=== PATIENT | female | born 1935 | race Caucasian/White ===

== ENCOUNTER 2018-12-27 06:38 | Inpatient (IN) ==
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
[2018-12-27] MEDS ORDERED: ACETAMINOPHEN 1,000 MG/100 ML BTL IV ONE (07:50)
[2018-12-27] MEDS ORDERED: NORMAL SALINE 1,000 ML IV ONE (07:51)
[2018-12-27 08:07] LABS: Hematocrit 41.4 % (37.0-47.0); Hemoglobin 13.8 gm/dL (12.5-16.0); Mean Cell Volume 97.6 fl (78-100); Mean Corpuscular Hemoglobin 32.5 pg (27-31); Mean Corpuscular Hgb Conc 33.3 g/dl (32-36); Mean Platelet Volume 10.2 fl (8-12.5); Neutrophil # 5.2 K/mm3 (1.3-6.0); Neutrophil % 81.5 % (42-75.0); Platelet Count 143 K/mm3 (150-450); Red Blood Count 4.24 M/mm3 (4.2-5.4); Red Cell Distribution Width 13.7 % (11.5-14.0); White Blood Count 6.4 K/mm3 (4.0-10.5)
[2018-12-27] MEDS ORDERED: ONDANSETRON HCL/PF 2 MG/ML VIAL IV PRN ×2 (08:11→12:39)
[2018-12-27] MEDS ORDERED: ACETAMINOPHEN 1,000 MG/100 ML BTL IV PRN (08:12)
[2018-12-27 08:19] LABS: Albumin * 3.4 gm/dl (3.4-5.0); BUN/Creatinine Ratio 17.4 (9.0-21.6); Bilirubin, Total 0.7 mg/dL (0.0-1.1); Carbon Dioxide 28.9 mmol/L (24-32.6); Potassium 3.9 mmol/L (3.4-4.6); Total Protein 6.7 gm/dL (6.2-8.2)
[2018-12-27 08:29] LABS: Ca. Corrected For Albumin 8.8 mg/dL (8.4-10.2); Calcium * 8.6 mg/dL (7.9-10.9)
[2018-12-27 08:37] LABS: Urine Bilirubin Negative (NEGATIVE); Urine Blood Negative /ul (NEGATIVE); Urine Ketone Negative (NEGATIVE); Urine Nitrite Negative (NEGATIVE); Urine Protein Negative (NEGATIVE); Urine Specific Gravity 1.015 SP.GR. (1.005-1.010); Urine Urobilinogen Normal (NORMAL); Urine pH 6.5 pH (5.0-7.0)
[2018-12-27 08:51] LABS: Urine Appearance Slightly Cloudy (CLEAR); Urine Bacteria TRACE; Urine Color Yellow; Urine RBC 0-5 /hpf (0-5); Urine WBC 0-5 /hpf (0-5)
[2018-12-27] MEDS ORDERED: MORPHINE SULFATE 2 MG/ML DISP.SYRIN IV PRN (09:50)
--- NOTE | 2018-12-27 10:02 | ANES ---
Anesthesia Pre Procedure Eval Vitals/Labs: Last Vital Signs Temp 37.3 C 12/27/18 09:00 Pulse 75 12/27/18 09:00 Resp 24 H 12/27/18 09:00 BP 146/78 12/27/18 09:00 Pulse Ox 94 12/27/18 09:00 HOME MEDICATIONS acetaminophen 325 mg capsule 650 mg PO Q6H PRN cap 05/01/18 [Last Taken Unknown] bisacodyl 10 mg rectal suppository 10 mg IN DAILY PRN 05/01/18 [Last Taken Unknown] latanoprost 0.005 % eye drops 1 drp OP HS #3 ml 05/01/18 [Last Taken Unknown] lisinopril 5 mg tablet 5 mg PO HS #28 tab 05/01/18 [Last Taken Unknown] multivitamin tablet 1 tab PO DAILY 05/01/18 [Last Taken Unknown] olanzapine 10 mg tablet 10 mg PO HS #28 tab 05/01/18 [Last Taken Unknown] olanzapine 2.5 mg tablet 2.5 mg PO DAILY #28 tab 05/01/18 [Last Taken Unknown] polyethylene glycol 3350 17 gram/dose oral powder 17 g PO DAILY PRN g 05/01/18 [Last Taken Unknown] potassium chloride ER 10 mEq tablet,extended release 10 meq PO BID #28 tab 05/01/18 [Last Taken Unknown] sennosides 8.6 mg-docusate sodium 50 mg tablet 1 tab PO HS PRN 05/01/18 [Last Taken Unknown] sertraline 50 mg tablet 50 mg PO DAILY #28 tab 05/01/18 [Last Taken Unknown] simvastatin 20 mg tablet 20 mg PO HS #28 tab 05/01/18 [Last Taken Unknown] trazodone 50 mg tablet 25 mg PO DAILY PRN #16 tab 05/01/18 [Last Taken Unknown] cholecalciferol (vitamin D3) 2,000 unit tablet 2,000 unit PO DAILY 06/19/18 [Last Taken Unknown] olanzapine 5 mg tablet 5 mg PO 1400 #28 tab 08/11/18 [Last Taken Unknown] Dextromethorphan Polistirex [Delsym] 15 mg PO BID PRN 12/27/18 [Last Taken Unknown] Allergies/Adverse Reactions: Allergies Allergy/AdvReac Type Severity Reaction Status Date / Time No Known Allergies Allergy Verified 12/27/18 09:45 - Planned Procedure Planned Procedure: LT hip fracture Medication List Reviewed:: Yes Allergies Verified: Yes Medical History (Updated 12/27/18 @ 07:59 by Nancy Lyons MD) Unspecified open-angle glaucoma, stage unspecified (Acute) Major depressive disorder (Acute) Osteoarthritis (Acute) Hyperlipidemia (Chronic) Essential hypertension (Chronic) Glaucoma (Chronic) Dementia (Chronic) Anxiety (Chronic) CAD (coronary artery disease) (Chronic) AAA (abdominal aortic aneurysm) (Chronic) Surgical History (Updated 12/27/18 @ 06:50 by Sabra Flores RN) History of cholecystectomy (Resolved) History of colonoscopy (Resolved) History of hysterectomy (Resolved) History of permanent cardiac pacemaker placement (Resolved) History of AAA (abdominal aortic aneurysm) repair (Resolved) Family History (Updated 12/27/18 @ 06:54 by Micah Cordoba RN) Other Family history unobtainable - Family Anesthesia History Family History:: no untoward family reactions to anesthesia, no familial bleeding tendencies, no family history of clotting disorders, no family history of premature - Airway/Neck/Teeth Within Normal Limits:: Yes Denture Type: Full upper, Full lower - out at this time Neck Exam: full range of motion Mallampatti Score: 2 - estimate, pt not cooperative. Thyromental (T-M) distance: > 6 cm Mandibulo Hyoid distance: > 3 cm - Respiratory Respiratory Physical: decreased breath sounds Smoking Status: Former smoker - quit over 20 years ago Sleep Apnea currently treated: No Sleep Apnea by current assessment: No - Cardiovascular Cardiac History: arrhythmia - Paced., CAD Tolerate Activity: Fair - normally walks without walker or other device. Heart Sounds: S1 & S2, Regular - pacemaker - Anesthesia Assessment and Plan ASA Class: PS, III, E Anesthesia Type Plan: Spinal
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
--- NOTE | 2018-12-27 10:57 | HP ---
Chief Complaint - Chief Complaint Date of Service: 12/27/18 Time of Service: 10:39 Chief Complaint: hip pain History of Present Illness: 83-year-old female with history of hypertension, hyperlipidemia, CAD with permanent pacemaker was brought into the hospital following a ground-level fall. X-rays of her pelvis showed her to have an intertrochanteric left femur fracture. Dr. Higgins was consulted and plans to take back for repair later today. Patient is currently n.p.o. Patient is pleasantly demented, A&O x1 but denies being in any pain. Patient's lab work in the ER within normal limits, patient not anemic. Patient's vital signs are stable though she is mildly tachypneic at 24. Risks of surgery discussed with the patient's family who wish to proceed with repair due to patient's activity level and quality of life. Medical History (Updated 12/27/18 @ 07:59 by Nancy Lyons MD) Unspecified open-angle glaucoma, stage unspecified (Acute) Major depressive disorder (Acute) Osteoarthritis (Acute) Hyperlipidemia (Chronic) Essential hypertension (Chronic) Glaucoma (Chronic) Dementia (Chronic) Anxiety (Chronic) CAD (coronary artery disease) (Chronic) AAA (abdominal aortic aneurysm) (Chronic) Surgical History: Surgical History (Updated 12/27/18 @ 06:50 by Sabra Flores RN) History of cholecystectomy (Resolved) History of colonoscopy (Resolved) History of hysterectomy (Resolved) History of permanent cardiac pacemaker placement (Resolved) History of AAA (abdominal aortic aneurysm) repair (Resolved) Family History: Family History (Updated 12/27/18 @ 06:54 by Micah Cordoba RN) Other Family history unobtainable Social History: (Last Reviewed 12/27/18 @ 09:45 by Medina Bright RN) Social History: senior living: Yes lives independently: No caregiver/support person: Yes caregiver/support person comment: senior living, spouse caregivers: other parent marital status: current occupational status: retired Tobacco: Smoking Status: Former smoker, quit over 20 years ago Review Of Systems (GEN) - Review of Systems Generalized/Overall Review: Present: No Symptoms Reported - Patient denies pain but otherwise review of systems unable to be obtained due to dementia Immunizations: IMMUNIZATION HX Immunizations Up to Date Yes History of Influenza Vaccine More Information Required Hx Pneumococcal Vaccination Yes Allergies/Adverse Reactions: Allergies Allergy/AdvReac Type Severity Reaction Status Date / Time No Known Allergies Allergy Verified 12/27/18 09:45 Home Medications: HOME MEDICATIONS acetaminophen 325 mg capsule 650 mg PO Q6H PRN cap 05/01/18 [Last Taken Unknown] bisacodyl 10 mg rectal suppository 10 mg [place] DAILY PRN 05/01/18 [Last Taken Unknown] latanoprost 0.005 % eye drops 1 drp OP HS #3 ml 05/01/18 [Last Taken Unknown] lisinopril 5 mg tablet 5 mg PO HS #28 tab 05/01/18 [Last Taken Unknown] multivitamin tablet 1 tab PO DAILY 05/01/18 [Last Taken Unknown] olanzapine 10 mg tablet 10 mg PO HS #28 tab 05/01/18 [Last Taken Unknown] olanzapine 2.5 mg tablet 2.5 mg PO DAILY #28 tab 05/01/18 [Last Taken Unknown] polyethylene glycol 3350 17 gram/dose oral powder 17 g PO DAILY PRN g 05/01/18 [Last Taken Unknown] potassium chloride ER 10 mEq tablet,extended release 10 meq PO BID #28 tab 05/01/18 [Last Taken Unknown] sennosides 8.6 mg-docusate sodium 50 mg tablet 1 tab PO HS PRN 05/01/18 [Last Taken Unknown] sertraline 50 mg tablet 50 mg PO DAILY #28 tab 05/01/18 [Last Taken Unknown] simvastatin 20 mg tablet 20 mg PO HS #28 tab 05/01/18 [Last Taken Unknown] trazodone 50 mg tablet 25 mg PO DAILY PRN #16 tab 05/01/18 [Last Taken Unknown] cholecalciferol (vitamin D3) 2,000 unit tablet 2,000 unit PO DAILY 06/19/18 [Last Taken Unknown] olanzapine 5 mg tablet 5 mg PO 1400 #28 tab 08/11/18 [Last Taken Unknown] Dextromethorphan Polistirex [Delsym] 15 mg PO BID PRN 12/27/18 [Last Taken Unknown] Exam - Exam Vital Signs: Vital Signs - Last Taken Temp 37.3 C 12/27/18 09:00 Pulse 75 12/27/18 09:00 Resp 24 H 12/27/18 09:00 BP 146/78 12/27/18 09:00 Pulse Ox 94 12/27/18 09:00 Constitutional: Present: Alert, No distress, Elderly, Thin and frail. Absent: Oriented x3 - X1 ENT Exam: Absent: nasal congestion, nasal drainage Neck: Present: non-tender, supple Back Exam: Present: normal inspection, no CVA tenderness, no vertebral tenderness Respiratory: Present: lungs clear, normal breath sounds. Absent: respiratory distress Cardiovascular/Chest: Present: normal peripheral pulses, regular rate, rhythm Peripheral Pulses: dorsalis-pedis (R): 2+, dorsalis-pedis (L): 2+ Abdomen: Present: Normal bowel sounds, soft, nontender Skin Exam: Present: normal color, warm/dry Appearance: Present: impaired insight, impaired recent memory. Absent: appropriate insight Eye contact: Present: good eye contact, refused to answer Diagnostic Studies: Abnormal Lab Results 12/27/18 12/27/18 Range/Units 07:58 07:58 MCH 32.5 H (27-31) pg Plt Count 143 L (150-450) K/mm3 Immature Gran % (Auto) 0.50 H (0.001-0.429) % Neutrophils % 81.5 H (42-75.0) % Lymphocytes % 9.8 L (20-51) % Lymphocytes # 0.62 L (1.5-3.5) k/mm3 Est GFR (Non-Af Amer) 45 L (60-130) mL/min Laboratory Results WBC 6.4 K/mm3 (4.0-10.5) 12/27/18 07:58 RBC 4.24 M/mm3 (4.2-5.4) 12/27/18 07:58 Hgb 13.8 gm/dL (12.5-16.0) 12/27/18 07:58 Hct 41.4 % (37.0-47.0) 12/27/18 07:58 MCV 97.6 fl (78-100) 12/27/18 07:58 MCH 32.5 pg (27-31) H 12/27/18 07:58 MCHC 33.3 g/dl (32-36) 12/27/18 07:58 RDW 13.7 % (11.5-14.0) 12/27/18 07:58 Plt Count 143 K/mm3 (150-450) L 12/27/18 07:58 MPV 10.2 fl (8-12.5) 12/27/18 07:58 Immature Gran % (Auto) 0.50 % (0.001-0.429) H 12/27/18 07:58 Immature Gran # (Auto) 0.03 K/mm3 (0.000-0.0310) 12/27/18 07:58 81.5 % (42-75.0) H 12/27/18 07:58 9.8 % (20-51) L 12/27/18 07:58 6.6 % (0.0-9) 12/27/18 07:58 1.1 % (0.0-3.0) 12/27/18 07:58 0.5 % (0.0-1.0) 12/27/18 07:58 Nucleated RBC % 0.0 k/mm3 (0-1) 12/27/18 07:58 5.2 K/mm3 (1.3-6.0) 12/27/18 07:58 0.62 k/mm3 (1.5-3.5) L 12/27/18 07:58 0.4 k/mm3 (0.0-1.0) 12/27/18 07:58 0.1 k/mm3 (0.0-0.7) 12/27/18 07:58 Absolute Basophils 0.0 k/mm3 (0.0-0.1) 12/27/18 07:58 Sodium 141 mmol/L (132-142) 12/27/18 07:58 141 mmol/L (130-142) 12/27/18 07:58 Potassium 3.9 mmol/L (3.4-4.6) 12/27/18 07:58 Chloride 105 mmol/L (97-106) 12/27/18 07:58 Carbon Dioxide 28.9 mmol/L (24-32.6) 12/27/18 07:58 11.0 mmol/L (6.8-13.8) 12/27/18 07:58 BUN 21 mg/dL (3-23) 12/27/18 07:58 1.21 mg/dL (0.4-1.4) 12/27/18 07:58 Est GFR (Non-Af Amer) 45 mL/min (60-130) L 12/27/18 07:58 17.4 (9.0-21.6) 12/27/18 07:58 103 mg/dL (70-110) 12/27/18 07:58 Calcium 8.6 mg/dL (7.9-10.9) 12/27/18 07:58 Calcium Adj for Albumin 8.8 mg/dL (8.4-10.2) 12/27/18 07:58 0.7 mg/dL (0.0-1.1) 12/27/18 07:58 AST 35 U/L (0-48) 12/27/18 07:58 ALT 39 U/L (19-67) 12/27/18 07:58 79 U/L (50-170) 12/27/18 07:58 6.7 gm/dL (6.2-8.2) 12/27/18 07:58 3.4 gm/dl (3.4-5.0) 12/27/18 07:58 Yellow 12/27/18 08:17 Slightly cloudy (CLEAR) 12/27/18 08:17 6.5 pH (5.0-7.0) 12/27/18 08:17 Ur Specific [place] 1.015 SP.GR. (1.005-1.010) 12/27/18 08:17 Negative mg/dL (NEGATIVE) 12/27/18 08:17 Negative mg/dL (NEGATIVE) 12/27/18 08:17 Negative mg/dL (NEGATIVE) 12/27/18 08:17 Negative /ul (NEGATIVE) 12/27/18 08:17 Negative (NEGATIVE) 12/27/18 08:17 Negative mg/dl (NEGATIVE) 12/27/18 08:17 Normal EU/dl (NORMAL) 12/27/18 08:17 Ur Leukocyte Esterase Negative /ul (NEGATIVE) 12/27/18 08:17 0-5 /hpf (0-5) 12/27/18 08:17 0-5 /hpf (0-5) 12/27/18 08:17 Ur Epithelial Cells 0-5 /hpf (0-5) 12/27/18 08:17 Trace (NONE) 12/27/18 08:17 Culture to follow 12/27/18 08:17 Assessment/Plan - Narrative Narrative: Patient to go back for repair with Dr. Higgins this morning. Patient's risk factors slightly higher than above average due to age, dementia, fall risk, senior living placement, CAD with permanent pacemaker in place. This was all discussed with the family who wish to proceed with the surgery due to patient's quality of life. I think this is an appropriate decision and agree with surgical clearance. Patient's vital signs are stable, she is not anemic. Normal kidney function. Patient currently n.p.o. prior to surgery. Morphine for pain control. SCDs to be worn on right leg for DVT prophylaxis, none on left for comfort measures. Currently holding home meds will restart them following surgery. Nurse will call with questions or concerns. - Assessment/Plan (1) Intertrochanteric fracture of left femur Problem: Acute (2) Dementia Problem: Chronic Qualifiers: (3) History of permanent cardiac pacemaker placement Problem: Resolved (4) CAD (coronary artery disease) Problem: Chronic Qualifiers: (5) Hyperlipidemia Problem: Chronic (6) Osteoarthritis Problem: Acute
[2018-12-27] MEDS: RINGER'S SOLUTION,LACTATED 1,000 ML IV PRN ×3 (12:12→22:37)
[2018-12-27] MEDS ORDERED: ACETAMINOPHEN 500 MG TABLET PO PRN (12:39)
[2018-12-27] MEDS ORDERED: ZOLPIDEM TARTRATE 5 MG TABLET PO PRN (12:39)
[2018-12-27] MEDS ORDERED: HYDROcodone/ACETAMINOPHEN 1 EACH TABLET PO PRN (12:39)
[2018-12-27] MEDS ORDERED: MAG HYDROX/ALUMINUM HYD/SIMETH 30 ML UDC PO PRN (12:39)
[2018-12-27] MEDS ORDERED: MAGNESIUM HYDROXIDE 30 ML UDC PO PRN (12:39)
[2018-12-27] MEDS ORDERED: diphenhydrAMINE HCL 50 MG/ML VIAL IV PRN (12:39)
[2018-12-27] MEDS ORDERED: MORPHINE SULFATE 4 MG/ML SYRG IV PRN (12:39)
--- NOTE | 2018-12-27 12:45 | OR ---
Operative Report - Dictated Report Narrative: Date: 12/27/2018 Surgeon: Harshal Higgins M.D. Welder/Fitter: None Preoperative diagnosis: Left intertrochanteric femur fracture Postoperative diagnosis: Left intertrochanteric femur fracture Operations and procedures: 1. Closed reduction, cephalo-medullary fixation left intertrochanteric femur fracture 2. Intraoperative interpretation of radiographs Anesthesia: Spinal Specimens: None Estimated blood loss: 200 milliliters Retained implants: [employer] Trigen InterTAN 130 degree size 10 mm by 18 centimeter nail with 85 millimeter lag screw and 80 millimeter compression screw, with distal locking screw Complications: None Indications for procedure: Connie is an 83-year-old female with dementia who injured the left leg after falling from standing height in her correction. They were admitted to the hospital after being evaluated in the emergency department. Once the medical provider felt that they were stable for surgical treatment, the risks and benefits alternatives were discussed. The risks of , blood clots, bleeding, infection, nerve/tendon/blood vessel injury, malunion, nonunion, failure of implants, painful implants, arthrosis, and need for additional procedures were discussed. The extremity was marked and consent was obtained on the floor. Procedure: After marking the operative extremity on the floor, the patient was taken to the operating room. A timeout was performed. IV antibiotics consisting of 1 g of Ancef were administered. A spinal anesthetic was induced by anesthesia, and the patient was then placed onto a fracture table with a well-padded perineal post. The non-operative leg was placed in a well-padded well leg boone in lithotomy position with an SCD on the leg. The operative leg was placed in a well-padded traction boot. Longitudinal traction, internal rotation, flexion, and adduction were utilized in order to reduce the fracture. Preliminary images were attained utilizing C-arm in both the AP and lateral views. This confirmed that we had obtained adequate visualization of the fracture as well as reduction. Next the hip was then prepped and draped in a standard sterile fashion. Next, the guidewire was placed percutaneously proximal to the greater trochanter to bernadette a starting point at the tip of the greater trochanter centered on the lateral view. This was advanced down to the level below the lesser trochanter. A scalpel was utilized to dissect down to the greater trochanter in order to lace the soft tissue protector down to bone. The entry reamer was then advanced down the proximal femur to the level of the lesser trochanter. A series of reamers up to 11.5 mm were passed down the femoral canal over a long guide xiao to ensure that our nail would advance into place. The above nail was then selected and impacted into place. The outrigger was utilized in order to confirm the appropriate depth of the nail. Using the alignment device on the outrigger, a popeye incision was made over the lateral femur. Sharp dissection was carried through the iliotibial band down to the proximal femur. The guidewire was was placed into the femoral head in a center center position on AP and lateral views. A tip apex distance less than 25 mm combined was obtained. Once we felt that we had placed the guidewire in the appropriate position, it was measured. Next the compression screw entry drill was advanced through the lateral cortex. This was then drilled down to the appropriate depth for the compression screw, again confirming that we are within the confines the bone. The derotational bar was then placed and the lag screw was drilled to the appropriate depth. The lag screw was then secured in place ensuring that we were within the confines of the bone. The compression screw was then inserted allowing for compression while releasing the traction on the leg. Using C-arm this was visualized to allow for compression across the fracture site. Once it was felt we had adequately stabilized the intertrochanteric fracture, the distal interlocking screw was placed in a static position confirmed to be the appropriate length and within the nail on both AP and lateral views. The nail was secured allowing for controlled compression and the outrigger was removed. The wounds were then thoroughly irrigated. Final images were obtained. The hip was placed through range of motion and showed no crepitance. The deep fascia was closed with 0 Vicryl, the subcutaneous tissue with 3-0 Vicryl, and the skin was closed with cash. Sterile dressings of Xeroform, 4 x 4s, and tegaderm were applied. All sponge, sharp, and instrument counts were correct prior to closing the wounds. The patient was then awoken and transferred to the postanesthesia care unit in stable condition.
--- NOTE | 2018-12-27 12:52 | ANES ---
Post Anesthesia Assessment - Vital Signs Vitals: Last Vital Signs Temp 37.3 C 12/27/18 09:00 Pulse 75 12/27/18 09:00 Resp 24 H 12/27/18 09:00 BP 146/78 12/27/18 09:00 Pulse Ox 94 12/27/18 09:00 Airway Patency: Normal - Mental Status Level Of Consciousness: Drowsy - Pain Level Pain Score: 0 - N/V Assessment Nausea/Vomiting Presence: None Dehydration:: No
--- NOTE | 2018-12-27 13:04 | ANES ---
Post Anesthesia Discharge - Transfer of Care Transfer of Care handoff given to nurse: Yes - Discharge from PACU Discharge from PACU when meets criteria: Yes - Comfortable, arousable.
[2018-12-27] MEDS ORDERED: LORazepam 2 MG/ML DISP.SYRIN IV ONE (17:00)
[2018-12-27] MEDS: ceFAZolin SODIUM 1 GM in DEXTROSE 5 % IN WATER 100 ML IV SCH ×2 (17:17)
[2018-12-27] MEDS: HYDROcodone/ACETAMINOPHEN 1 EACH TABLET PO PRN (20:52)
[2018-12-27] MEDS: SENNOSIDES/DOCUSATE SODIUM 1 TAB TABLET PO SCH (20:53)
[2018-12-27] MEDS: LORazepam 2 MG/ML DISP.SYRIN IV PRN (21:02)
[2018-12-28] MEDS: ceFAZolin SODIUM 1 GM in DEXTROSE 5 % IN WATER 100 ML IV SCH ×4 (02:01→09:59)
[2018-12-28] MEDS: HYDROcodone/ACETAMINOPHEN 1 EACH TABLET PO PRN ×2 (04:41→21:45)
[2018-12-28] MEDS: RINGER'S SOLUTION,LACTATED 1,000 ML IV PRN (04:51)
[2018-12-28] MEDS: LORazepam 2 MG/ML DISP.SYRIN IV PRN (05:09)
[2018-12-28 05:54] LABS: Hematocrit 32.9 % (37.0-47.0); Hemoglobin 11.1 gm/dL (12.5-16.0); Mean Cell Volume 97.1 fl (78-100); Mean Corpuscular Hemoglobin 32.7 pg (27-31); Mean Corpuscular Hgb Conc 33.7 g/dl (32-36); Mean Platelet Volume 10.5 fl (8-12.5); Platelet Count 130 K/mm3 (150-450); Red Blood Count 3.39 M/mm3 (4.2-5.4); Red Cell Distribution Width 13.4 % (11.5-14.0); White Blood Count 9.9 K/mm3 (4.0-10.5)
[2018-12-28] MEDS ORDERED: ceFAZolin SODIUM 1 GM VIAL IV PRN (06:00)
[2018-12-28 06:07] LABS: Anion Gap 11.1 mmol/L (6.8-13.8); BUN/Creatinine Ratio 14.6 (9.0-21.6); Calcium * 7.9 mg/dL (7.9-10.9); Carbon Dioxide 28.6 mmol/L (24-32.6); Estimated Creat Clear 26.9; Potassium 3.7 mmol/L (3.4-4.6)
--- NOTE | 2018-12-28 10:41 | PN ---
Subjective - Date and Time Seen Date: 12/28/18 Time: 07:50 Subjective Narrative: Patient has not significantly responsive, she does respond to stimuli and her name, however she is unable to follow significant commands. Per nursing she was given a dose of Ativan due to significant agitation and patient attempting to leave her bed. Note nursing also states that she has attempted multiple times to significantly remove her dressings at the surgical site. We will continue to monitor. Discussed with nursing updating medicine on patient's current condition. Objective - Vitals Vitals: Last Vital Signs Temp 37.6 C 12/28/18 06:00 Pulse 75 12/28/18 06:00 Resp 20 12/28/18 06:00 BP 108/53 12/28/18 06:00 Pulse Ox 91 L 12/28/18 06:00 - Abnormal Lab Findings Abnormal Lab Findings: Abnormal Lab Results 12/28/18 12/28/18 Range/Units 05:40 05:40 RBC 3.39 L (4.2-5.4) M/mm3 Hgb 11.1 L (12.5-16.0) gm/dL Hct 32.9 L (37.0-47.0) % MCH 32.7 H (27-31) pg Plt Count 130 L (150-450) K/mm3 Est GFR (Non-Af Amer) 44 L (60-130) mL/min Random Glucose 126 H (70-110) mg/dL - Exam Extremity: Present: other - LLE--> dressings mildly reinforced, no significant drainage or erythema around the dressing, distal capillary refill brisk Cauti Physician Documentation - Urinary Catheter Management Urethral ([place]) Date of Insertion: 12/27/18 Time of Insertion: 08:10 Date of Removal: 12/28/18 Time of Removal: 05:30 Assessment/Plan Plan Narrative: -83 y/o female postop day 1 status post left cephalo-medullary nailing of intertrochanteric femur fracture -Weightbearing as tolerated, assistive device PRN -PT/OT progress as tolerated -P.o. diet as tolerated -P.o. pain medication PRN -Chronic medical conditions per medicine -DVT prophylaxis: Lovenox, SCDs in bed, BRANDIE hose knee-high -Continue to monitor patient's mental status, medicine was to be notified by alex lea due to agitation and mild arousal -Disposition due to patient's chronical medical conditions will most likely require higher level of care, will continue to monitor PT/OT goals, and return to p.o. diet and pain control - Problems/Diagnosis (1) Intertrochanteric fracture of left femur Problem: Acute
[2018-12-28] MEDS: ENOXAPARIN SODIUM 40 MG/0.4 ML SYRG SC SCH (12:14)
--- NOTE | 2018-12-28 12:27 | PN ---
Subjective - Date and Time Seen Date: 12/28/18 Time: 12:27 Subjective Narrative: Patient much more comfortable and alert today. No acute events over night though she is still requiring ativan for agitation. She is upright and sitting in her chair this morning. Her vitals are stable. She is still nonverbal with me, family in the room during her examination. Objective Objective Narrative: She denies pain, refuses to answer any other questions - Vitals Vitals: Last Vital Signs Temp 37.1 C 12/28/18 10:00 Pulse 83 12/28/18 10:00 Resp 18 12/28/18 10:00 BP 117/60 12/28/18 10:00 Pulse Ox 90 L 12/28/18 10:00 - Abnormal Lab Findings Abnormal Lab Findings: Abnormal Lab Results 12/28/18 12/28/18 Range/Units 05:40 05:40 RBC 3.39 L (4.2-5.4) M/mm3 Hgb 11.1 L (12.5-16.0) gm/dL Hct 32.9 L (37.0-47.0) % MCH 32.7 H (27-31) pg Plt Count 130 L (150-450) K/mm3 Est GFR (Non-Af Amer) 44 L (60-130) mL/min Random Glucose 126 H (70-110) mg/dL - Exam Constitutional: Present: Alert, Elderly, Thin and frail. Absent: Oriented x3 - x1 ENT Exam: Present: hard of hearing. Absent: nasal congestion, nasal drainage Neck: Present: non-tender, trachea midline Respiratory: Present: lungs clear, normal breath sounds, no respiratory distress Cardiovascular/Chest: Present: normal peripheral pulses, regular rate, rhythm Abdomen: Present: Normal bowel sounds, soft, nontender /Rectal: Present: Exam deferred Extremity: Absent: lower extremity edema, pedal edema Skin Exam: Present: normal color, warm/dry Appearance: Present: impaired insight, impaired recent memory, impaired remote memory Eye contact: Present: avoids eye contact, refused to answer Cauti Physician Documentation - Urinary Catheter Management Urethral ([place]) Date of Insertion: 12/27/18 Time of Insertion: 08:10 Date of Removal: 12/28/18 Time of Removal: 05:30 Assessment/Plan Plan Narrative: Post op day 1 for repair of left intertrochanteric fracture repair by Dr. Higgins. Pain appears to be well controlled though patient is nonverbal most of the time and has advanced dementia making examination difficult. Mild blood loss anemia, will monitor H/H. Continue oral pain meds as needed. Patient has been significantly somnolent since requiring Ativan due to agitation. She is going to be difficult to get through PT with her dementia and agitation. Will get her home meds restarted to see if this will make much of a difference in this area Will monitor vitals, restart home meds. Lovenox for DTV ppx. Reg diet. Nurse to call with any questions or concerns. - Problems/Diagnosis (1) Intertrochanteric fracture of left femur Problem: Acute (2) Dementia Problem: Chronic Qualifiers: (3) History of permanent cardiac pacemaker placement Problem: Resolved (4) CAD (coronary artery disease) Problem: Chronic Qualifiers: (5) Hyperlipidemia Problem: Chronic (6) Osteoarthritis Problem: Acute
[2018-12-28] MEDS: SENNOSIDES/DOCUSATE SODIUM 1 TAB TABLET PO SCH (21:40)
[2018-12-28] MEDS ORDERED: POLYETHYLENE GLYCOL 3350 119 GM BTL PO PRN (22:05)
[2018-12-28] MEDS ORDERED: traZODone HCL 50 MG TABLET PO PRN (22:05)
[2018-12-28] MEDS ORDERED: ACETAMINOPHEN 325 MG TABLET PO PRN (22:28)
[2018-12-29 06:07] LABS: Hematocrit 31.4 % (37.0-47.0); Hemoglobin 10.8 gm/dL (12.5-16.0); Mean Cell Volume 97.2 fl (78-100); Mean Corpuscular Hemoglobin 33.4 pg (27-31); Mean Corpuscular Hgb Conc 34.4 g/dl (32-36); Mean Platelet Volume 10.9 fl (8-12.5); Platelet Count 138 K/mm3 (150-450); Red Blood Count 3.23 M/mm3 (4.2-5.4); Red Cell Distribution Width 13.2 % (11.5-14.0); White Blood Count 12.1 K/mm3 (4.0-10.5)
[2018-12-29 06:09] LABS: Anion Gap 10.2 mmol/L (6.8-13.8); Calcium * 8.1 mg/dL (7.9-10.9); Potassium 3.2 mmol/L (3.4-4.6)
[2018-12-29] MEDS ORDERED: POLYETHYLENE GLYCOL 3350 17 GM PACKET PO PRN (06:40)
[2018-12-29] MEDS: POTASSIUM CHLORIDE 10 MEQ TABLET.SA PO SCH ×2 (08:39→17:06)
[2018-12-29] MEDS: SERTRALINE HCL 50 MG TABLET PO SCH (08:39)
[2018-12-29] MEDS: OLANZapine 5 MG TABLET PO SCH (08:39)
[2018-12-29] MEDS: DENTAL ADHESIVE 39 APPL TUBE TP SCH (10:25)
[2018-12-29] MEDS ORDERED: POTASSIUM CHLORIDE 40 MEQ/15 ML LIQUID PO ONE (10:30)
[2018-12-29] MEDS: HYDROcodone/ACETAMINOPHEN 1 EACH TABLET PO PRN ×2 (10:38→20:07)
[2018-12-29] MEDS: ENOXAPARIN SODIUM 40 MG/0.4 ML SYRG SC SCH (10:39)
--- NOTE | 2018-12-29 15:13 | PN ---
Subjective - Date and Time Seen Date: 12/29/18 Time: 07:40 Subjective Narrative: Patient reports no acute events, however she has significant dementia and is unable to answer questions appropriately. She appears to be resting comfortably. Nursing reports that patient has tried to remove her dressings multiple times. She has been up to chair. She has worked with physical therapy who believes she could make improvements activities of daily living. Objective - Vitals Vitals: Last Vital Signs Temp 36.4 C 12/29/18 14:00 Pulse 78 12/29/18 14:00 Resp 20 12/29/18 14:00 BP 116/53 12/29/18 14:00 Pulse Ox 93 12/29/18 14:00 - Abnormal Lab Findings Abnormal Lab Findings: Abnormal Lab Results 12/29/18 12/29/18 Range/Units 05:26 05:26 WBC 12.1 H D (4.0-10.5) K/mm3 RBC 3.23 L (4.2-5.4) M/mm3 Hgb 10.8 L (12.5-16.0) gm/dL Hct 31.4 L (37.0-47.0) % MCH 33.4 H (27-31) pg Plt Count 138 L (150-450) K/mm3 Potassium 3.2 L (3.4-4.6) mmol/L Est GFR (Non-Af Amer) 52 L (60-130) mL/min - Exam Constitutional: Present: No distress Extremity: Present: other - LLE--> bandages clean/dry/intact, patient is able to perform active range of motion is within functional limit of ankle plantarflexion/dorsiflexion, distal capillary refill brisk, mild distress with palpation of left hip region Cauti Physician Documentation - Urinary Catheter Management Urethral ([place]) Date of Insertion: 12/27/18 Time of Insertion: 08:10 Date of Removal: 12/28/18 Time of Removal: 05:30 Assessment/Plan Plan Narrative: -83 y/o female postop day 2 status post left cephalo-medullary nailing of intertrochanteric femur fracture -Weightbearing as tolerated, assistive device PRN -PT/OT progress as tolerated -P.o. diet as tolerated -P.o. pain medication PRN -Chronic medical conditions per medicine -DVT prophylaxis: Lovenox, SCDs in bed, BRANDIE dillon knee-high -Continue to reinforce dressing PRN, monitor for erythema or drainage -Disposition due to patient's chronical medical conditions will most likely require higher level of care, will continue to monitor PT/OT goals, physical therapy evaluated and believes she can improve function for activities today living even with significant dementia, plan to discharge to a longterm facility on 12/30/2018 - Problems/Diagnosis (1) Intertrochanteric fracture of left femur Problem: Acute
--- NOTE | 2018-12-29 15:48 | PN ---
Subjective - Date and Time Seen Date: 12/29/18 Time: 15:48 Subjective Narrative: Patient sitting comfortable in her chair, alert to herself. Does not appear to be in pain, her vital signs been stable. She is much less agitated currently. Family at bedside. No acute events overnight. Objective Objective Narrative: Patient refused to answer - Vitals Vitals: Last Vital Signs Temp 36.4 C 12/29/18 14:00 Pulse 80 12/29/18 15:00 Resp 20 12/29/18 14:00 BP 116/53 12/29/18 14:00 Pulse Ox 93 12/29/18 14:00 - Abnormal Lab Findings Abnormal Lab Findings: Abnormal Lab Results 12/29/18 12/29/18 Range/Units 05:26 05:26 WBC 12.1 H D (4.0-10.5) K/mm3 RBC 3.23 L (4.2-5.4) M/mm3 Hgb 10.8 L (12.5-16.0) gm/dL Hct 31.4 L (37.0-47.0) % MCH 33.4 H (27-31) pg Plt Count 138 L (150-450) K/mm3 Potassium 3.2 L (3.4-4.6) mmol/L Est GFR (Non-Af Amer) 52 L (60-130) mL/min - Exam Constitutional: Present: Alert. Absent: Oriented x3 - to self only ENT Exam: Present: hard of hearing. Absent: nasal congestion, nasal drainage Neck: Present: non-tender, supple Respiratory: Present: lungs clear, normal breath sounds, no respiratory distress Cardiovascular/Chest: Present: normal peripheral pulses, regular rate, rhythm Abdomen: Present: soft, nontender, nondistended Extremity: Present: normal capillary refill, other - bandage clean and dry. Absent: pedal edema Skin Exam: Present: normal color, warm/dry Appearance: Present: impaired insight, impaired recent memory, impaired remote memory Cauti Physician Documentation - Urinary Catheter Management Urethral ([place]) Date of Insertion: 12/27/18 Time of Insertion: 08:10 Date of Removal: 12/28/18 Time of Removal: 05:30 Assessment/Plan Plan Narrative: Post op day 2 for repair of left intertrochanteric fracture repair by Dr. Higgins. Pain appears to be well controlled though patient is still nonverbal most of the time and has advanced dementia making examination difficult. Mild blood loss anemia, H/H stable. Continue oral pain meds as needed. Patient has been more alert today since requiring Ativan due to agitation yesterday. No doses giving to her in the last 24 hours. PT states that she has made progress today, continue. Home meds restarted, patient vitals and demeanor stable. Will monitor vitals, restarted home meds. Lovenox for DTV ppx. Reg diet. Nurse to call with any questions or concerns. Plan is for discharge to SNF tomorrow barring no unforseen set backs with care. - Problems/Diagnosis (1) Intertrochanteric fracture of left femur Problem: Acute (2) Acute blood loss anemia Problem: Acute Narrative: stable (3) Dementia Problem: Chronic Qualifiers: (4) History of permanent cardiac pacemaker placement Problem: Resolved (5) CAD (coronary artery disease) Problem: Chronic Qualifiers: (6) Hyperlipidemia Problem: Chronic (7) Osteoarthritis Problem: Acute
[2018-12-29] MEDS: SENNOSIDES/DOCUSATE SODIUM 1 TAB TABLET PO SCH (20:07)
[2018-12-29] MEDS ORDERED: OLANZapine 5 MG TABLET PO SCH (21:00)
[2018-12-29] MEDS ORDERED: LISINOPRIL 5 MG TABLET PO SCH (21:00)
[2018-12-29] MEDS ORDERED: SIMVASTATIN 20 MG TABLET PO SCH (21:00)
[2018-12-29] MEDS: LORazepam 2 MG/ML DISP.SYRIN IV PRN (22:51)
--- NOTE | 2018-12-30 08:04 | PN ---
Progess Note - Interim Date: 12/30/18 Time: 07:55 Narrative: Patient has significant dementia, unable to give appropriate history. No significant acute events overnight. Exam LLE--> bandages c/d/i, diffuse ttp left hip, 4+/5 PF/DF. Discussed the following recommendations to continue post-op: -83 y/o female postop day 3 status post left cephalo-medullary nailing of intertrochanteric femur fracture -Weightbearing as tolerated, assistive device PRN -PT/OT progress as tolerated -P.o. diet as tolerated -P.o. pain medication PRN -Chronic medical conditions per medicine -DVT prophylaxis: Lovenox for 6 weeks post-op will determine further tx at f/u, BRANDIE dillon knee-high -Continue to reinforce dressing PRN, keep clean and dry, change with dry gauze and tape PRN, monitor for erythema or drainage -Disposition: Discharge to SNF, f/u in orthopedic outpatient clinic at 2 weeks post-op 12/30/18 08:02
--- NOTE | 2018-12-30 08:06 | DS ---
(1) Intertrochanteric fracture of left femur Problem: Acute (2) Acute blood loss anemia Problem: Resolved (3) Dementia Problem: Chronic Qualifiers: (4) History of permanent cardiac pacemaker placement Problem: Chronic (5) CAD (coronary artery disease) Problem: Chronic Qualifiers: (6) Hyperlipidemia Problem: Chronic (7) Osteoarthritis Problem: Acute Date of Discharge:: 12/30/18 Description of Stay: 83 you old CF presented to the hospital with ground level fall and hip pain. XR showed left intertrochanteric femur fracture which was repaired by Dr. Higgins day of injury. No complications with surgery, blood loss anemia which stabilized at 10.8 (13.8 at admission). Due to chronic dementia, patient was agitated often and had trouble with completing PT. She did require ativan PRN as she was restless, often trying to climb out of bed or remove bandages/lines/o2 monitor ect. This improved significantly each day until day of discharge. Her vitals signs have been stable and she has been afebrile. No changes to her home meds aside from [place] for pain and lovenox added for DVT ppx. Her potassium did drop some but was replenished, waiting for lab work this morning but should be back to normal. She is cleared for discharge to SNF in [facility] later this am. Procedures Performed: see notes below Results and Findings: Lab Pending Results 12/27/18 07:58: WBC 6.4, RBC 4.24, Hgb 13.8, Hct 41.4, MCV 97.6, MCH 32.5 H, MCHC 33.3, RDW 13.7, Plt Count 143 L, MPV 10.2, Immature Gran % (Auto) 0.50 H, Immature Gran # (Auto) 0.03, Neutrophils % 81.5 H, Lymphocytes % 9.8 L, Monocytes % 6.6, Eosinophils % 1.1, Basophils % 0.5, Nucleated RBC % 0.0, Neutrophils # 5.2, Lymphocytes # 0.62 L, Monocytes # 0.4, Eosinophils # 0.1, Abs olute Basophils 0.0 12/27/18 07:58: Sodium 141, Plasma Sodium 141, Potassium 3.9, Chloride 105, Carbon Dioxide 28.9, Anion Gap 11.0, BUN 21, Creatinine 1.21, Est GFR (Non-Af A dianna) 45 L, BUN/Creatinine Ratio 17.4, Random Glucose 103, Calcium 8.6, Calcium Adj for Albumin 8.8, Total Bilirubin 0.7, AST 35, ALT 39, Alkaline Phosphatase 79, Total Protein 6.7, Albumin 3.4 12/27/18 08:17: Urine Color Yellow, Urine Appearance Slightly cloudy, Urine pH 6.5, Ur Specific Eleva 1.015, Urine Protein Negative, Urine Glucose (UA) Negative, Urine Ketones Negative, Urine Blood Negative, Urine Nitrate Negative, Urine Bilirubin Negative, Urine Urobilinogen Normal, Ur Leukocyte Esterase Negative, Urine RBC 0-5, Urine WBC 0-5, Ur Epithelial Cells 0-5, Urine Bacteria Trace, Urine Culture Comments Culture to follow 12/28/18 05:40: WBC 9.9 D, RBC 3.39 L, Hgb 11.1 L, Hct 32.9 L, MCV 97.1, MCH 32.7 H, MCHC 33.7, RDW 13.4, Plt Count 130 L, MPV 10.5 12/28/18 05:40: Sodium 142, Plasma Sodium 142, Potassium 3.7, Chloride 106, Carbon Dioxide 28.6, Anion Gap 11.1, BUN 18, Creatinine 1.23, Est GFR (Non-Af Amer) 44 L, BUN/Creatinine Ratio 14.6, Random Glucose 126 H, Calcium 7.9 12/29/18 05:26: WBC 12.1 H D, RBC 3.23 L, Hgb 10.8 L, Hct 31.4 L, MCV 97.2, MCH 33.4 H, MCHC 34.4, RDW 13.2, Plt Count 138 L, MPV 10.9 12/29/18 05:26: Sodium 140, Plasma Sodium 140, Potassium 3.2 L, Chloride 104, Carbon Dioxide 29.0, Anion Gap 10.2, BUN 16, Creatinine 1.07, Est GFR (Non-Af Amer) 52 L, BUN/Creatinine Ratio 15.0, Random Glucose 95, Calcium 8.1 Discharge Location: [facility] Disposition: [facility] Condition: Stable Level of Care: SNF Discharge Activity: Weight bearing - as tolerated, anterior precautions Discharge Diet: General/regular food Long-Term Therapy: Physical Therapy Referrals: Mary Conde ARNP [Primary Care Provider] - Two Weeks Additional Patient Instructions (free text): 6 weeks of Lovenox post op. Ortho to decide if aspirin is needed after Lovenox is completed. F/U with ortho in 2 weeks. BRANDIE hose knee-high Continue to reinforce dressing PRN, keep clean and dry, change with dry gauze and tape PRN, monitor for erythema or drainage Prescriptions (Any new or edited meds): Enoxaparin Sodium [Lovenox] 40 mg SC Q24H #40 disp.syrin HYDROcodone/ACETAMINOPHEN [[place] 5-325] 2 ea PO Q6H PRN #60 tab PRN Reason: MODERATE Pain (pain scale 4-6) Complete Home Medications List: Complete Home Medication List: acetaminophen 325 mg capsule 650 mg PO Q6H PRN cap 05/01/18 bisacodyl 10 mg rectal suppository 10 mg AK DAILY PRN 05/01/18 latanoprost 0.005 % eye drops 1 drp OP HS #3 ml 05/01/18 lisinopril 5 mg tablet 5 mg PO HS #28 tab 05/01/18 multivitamin tablet 1 tab PO DAILY 05/01/18 olanzapine 10 mg tablet 10 mg PO HS #28 tab 05/01/18 olanzapine 2.5 mg tablet 2.5 mg PO DAILY #28 tab 05/01/18 polyethylene glycol 3350 17 gram/dose oral powder 17 g PO DAILY PRN g 05/01/18 potassium chloride ER 10 mEq tablet,extended release 10 meq PO BID #28 tab 05/01/18 sennosides 8.6 mg-docusate sodium 50 mg tablet 1 tab PO HS PRN 05/01/18 sertraline 50 mg tablet 50 mg PO DAILY #28 tab 05/01/18 simvastatin 20 mg tablet 20 mg PO HS #28 tab 05/01/18 trazodone 50 mg tablet 25 mg PO DAILY PRN #16 tab 05/01/18 cholecalciferol (vitamin D3) 2,000 unit tablet 2,000 unit PO DAILY 06/19/18 olanzapine 5 mg tablet 5 mg PO 1400 #28 tab 08/11/18 Dextromethorphan Polistirex [Delsym] 15 mg PO BID PRN 12/27/18 Enoxaparin Sodium [Lovenox] 40 mg SC Q24H #40 disp.syrin 12/30/18 HYDROcodone/ACETAMINOPHEN [[place] 5-325] 2 ea PO Q6H PRN #60 tab 12/30/18
[2018-12-30] MEDS: POTASSIUM CHLORIDE 10 MEQ TABLET.SA PO SCH (08:18)
[2018-12-30] MEDS: DENTAL ADHESIVE 39 APPL TUBE TP SCH (08:18)
[2018-12-30] MEDS: SERTRALINE HCL 50 MG TABLET PO SCH (08:18)
[2018-12-30] MEDS: OLANZapine 5 MG TABLET PO SCH (08:18)
[2018-12-30] MEDS: HYDROcodone/ACETAMINOPHEN 1 EACH TABLET PO PRN (08:19)
[2018-12-30 09:26] LABS: Anion Gap 11.6 mmol/L (6.8-13.8); BUN/Creatinine Ratio 20.4 (9.0-21.6); Estimated Creat Clear 33.8; Potassium 3.6 mmol/L (3.4-4.6)
[2018-12-30 11:08] VITALS: BP 123/39
== END 2018-12-30 11:00 | DRG 481 ==
LOC: ER 06:38 → MS 08:00
PROVIDERS: ADMIT Family Medicine; ATTEND Family Medicine
DX: Z87.891 Personal history of nicotine dependence; W01.0XXA Fall on same level from slipping, tripping and stumbling without subsequent striking against object, initial encounter; I10 Essential (primary) hypertension; S72.145A Nondisplaced intertrochanteric fracture of left femur, initial encounter for closed fracture; F03.91 Unspecified dementia, unspecified severity, with behavioral disturbance; F33.9 Major depressive disorder, recurrent, unspecified; I25.10 Atherosclerotic heart disease of native coronary artery without angina pectoris; E78.5 Hyperlipidemia, unspecified; D62 Acute posthemorrhagic anemia; Z95.0 Presence of cardiac pacemaker
CPT/HCPCS: 36415; 71010; 71045; 73502; 76000; 80048; 80053; 81001; 85025; 85027; 87081; 87086; 93005; 97110; 97116; 97162; 97165; 97530; 99285; J0131

== ENCOUNTER 2019-01-08 03:59 | Inpatient (IN) ==
[2019-01-08] MEDS ORDERED: ALBUTEROL SULFATE/IPRATROPIUM 3 ML NEBU IH ONE (04:08)
--- NOTE | 2019-01-08 04:22 | ERNOTE ---
Dyspnea - General Presenting Symptoms: shortness of breath, wheezing Time Seen by Provider: 01/08/19 04:08 Source: EMS, [facility] records Exam Limitations: clinical condition, dementia - Immun/Allergies/Home Medications Immunizations: IMMUNIZATION HX Immunizations Up to Date Yes History of Influenza Vaccine More Information Required Hx Pneumococcal Vaccination Yes Allergies/Adverse Reactions: Allergies No Known Allergies Allergy (Verified 12/27/18 09:45) Home Medications: HOME MEDICATIONS acetaminophen 325 mg capsule 650 mg PO Q6H PRN cap 05/01/18 [Last Taken Unknown] bisacodyl 10 mg rectal suppository 10 mg [place] DAILY PRN 05/01/18 [Last Taken Unknown] latanoprost 0.005 % eye drops 1 drp OP HS #3 ml 05/01/18 [Last Taken Unknown] lisinopril 5 mg tablet 5 mg PO HS #28 tab 05/01/18 [Last Taken Unknown] multivitamin tablet 1 tab PO DAILY 05/01/18 [Last Taken Unknown] olanzapine 10 mg tablet 10 mg PO HS #28 tab 05/01/18 [Last Taken Unknown] olanzapine 2.5 mg tablet 2.5 mg PO DAILY #28 tab 05/01/18 [Last Taken Unknown] polyethylene glycol 3350 17 gram/dose oral powder 17 g PO DAILY PRN g 05/01/18 [Last Taken Unknown] potassium chloride ER 10 mEq tablet,extended release 10 meq PO BID #28 tab 05/01/18 [Last Taken Unknown] sennosides 8.6 mg-docusate sodium 50 mg tablet 1 tab PO HS PRN 05/01/18 [Last Taken Unknown] sertraline 50 mg tablet 50 mg PO DAILY #28 tab 05/01/18 [Last Taken Unknown] simvastatin 20 mg tablet 20 mg PO HS #28 tab 05/01/18 [Last Taken Unknown] trazodone 50 mg tablet 25 mg PO DAILY PRN #16 tab 05/01/18 [Last Taken Unknown] cholecalciferol (vitamin D3) 2,000 unit tablet 2,000 unit PO DAILY 06/19/18 [Last Taken Unknown] olanzapine 5 mg tablet 5 mg PO 1400 #28 tab 08/11/18 [Last Taken Unknown] Dextromethorphan Polistirex [Delsym] 15 mg PO BID PRN 12/27/18 [Last Taken Unknown] Enoxaparin Sodium [Lovenox] 40 mg SC Q24H #40 disp.syrin 12/30/18 [Last Taken Unknown] HYDROcodone/ACETAMINOPHEN [[place] 5-325] 2 ea PO Q6H PRN #60 tab 12/30/18 [Last Taken Unknown] guaiFENesin [Guaifenesin] 300 mg PO QID 01/08/19 [Last Taken Unknown] - History of Present Illness Narrative: senior care staff report the patient has been coughing and short of breath for 2 to 3 days they contacted her PCP Dr. Moody and he prescribed cefdinir. This evening the patient got worse and spiked a fever of 103.4 and her O2 saturations were in the 70s. Was transported by EMS to the ED. 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, oxygen Initiating event: Reports: upper resp illness Modifying Factors - (Improves): Reports: oxygen Modifying Factors (Worsens): Reports: coughing Review of Systems - Narrative Narrative: ROS not available due to patient's dementia Medical History (Updated 12/30/18 @ 08:06 by Donald Goldberg DO) Unspecified open-angle glaucoma, stage unspecified (Acute) Major depressive disorder (Acute) Osteoarthritis (Acute) Hyperlipidemia (Chronic) Essential hypertension (Chronic) Glaucoma (Chronic) Dementia (Chronic) Anxiety (Chronic) CAD (coronary artery disease) (Chronic) AAA (abdominal aortic aneurysm) (Chronic) Surgical History: Surgical History (Updated 12/30/18 @ 08:06 by Donald Goldberg DO) History of cholecystectomy (Resolved) History of colonoscopy (Resolved) History of hysterectomy (Resolved) History of permanent cardiac pacemaker placement (Chronic) History of AAA (abdominal aortic aneurysm) repair (Resolved) Family History: Family History (Updated 12/27/18 @ 06:54 by Micah Cordoba RN) Other Family history unobtainable Social History: (Last Reviewed 01/08/19 @ 04:14 by Alfred Hernández DO) Social History: [facility]: Yes lives independently: No caregiver/support person: Yes caregiver/support person comment: [facility], spouse caregivers: other parent marital status: current occupational status: retired Tobacco: Smoking Status: Former smoker, quit over 20 years ago Physical Exam - Physical Exam General Appearance: Present: wd/wn, mild distress Head Exam: Present: normal inspection, no evidence of injury Ears, Nose, Throat: Present: normal ENT inspection Neck: Present: normal inspection, nontender Respiratory: Present: no accessory muscle use, decreased breath sounds, crackles - bilateral Cardiovascular/Chest: Present: regular rate, rhythm, no murmur Gastrointestinal/Abdominal: Present: normal bowel sounds, nontender, nondist ended, soft Back Exam: Present: normal inspection, no vertebral tenderness Extremity Exam: Present: normal except - - left hip recent surgery see skin, no edema Neurological Exam: Present: alert, disoriented to time, disoriented to place, disoriented to situation Skin Exam: Present: warm/dry, other - left hip bruising and surgical wound approximated with cash, in good condition. Lymphatic Exam: Present: no adenopathy Progress - Results and Orders Patient's Lab Results:: I have reviewed the patient's lab results. Results and Orders: Laboratory Tests 01/08/19 01/08/19 04:20 04:20 WBC 13.2 H Hgb 9.1 L Hct 28.6 L Plt Count 348 Band Neuts % (Manual) 23 H Atypic/Reactive Lymphs 1 Toxic Vacuolation 2+ Macrocytosis Trace Sodium 142 Potassium 3.9 Chloride 109 H BUN 46 H D Creatinine 1.56 H D Random Glucose 171 H Calcium 8.0 Total Bilirubin 0.8 AST 102 H ALT 97 H Alkaline Phosphatase 211 H Troponin I 0.057 B-Natriuretic Peptide 2228 H Total Protein 6.0 L Albumin 2.1 L Laboratory Tests 01/08/19 04:50 Lactic Acid, Venous 2.1 H - Vital Signs Patient's Vital Signs:: I have reviewed the patient's vital signs. - X-Ray X-Ray #1 X-Ray: chest Interpretation: Interp. by me X-ray Comments: Patchy infiltrates most prominent right lower lobe and left upper lobes - Progress/Reassessment Progress:: Improved Progress Note-Subjective: 01/08/19 05:[address] Denton he agrees with admission to [facility]. Departure Clinical Impression: Nosocomial pneumonia Sepsis Qualifiers: Sepsis type: sepsis due to unspecified organism Sepsis acute organ dysfunction status: with acute organ dysfunction Severe sepsis acute organ dysfunction type: unspecified Severe sepsis shock status: with septic shock Qualified Code(s): A41.9 - Sepsis, unspecified organism; R65.21 - Severe sepsis with septic shock CHF (congestive heart failure) Qualifiers: Heart failure type: unspecified Heart failure chronicity: acute Qualified Code (s): I50.9 - Heart failure, unspecified - Departure Disposition: Still a patient Condition: Fair
[2019-01-08 04:23] LABS: Hematocrit 28.6 % (37.0-47.0); Hemoglobin 9.1 gm/dL (12.5-16.0); Mean Cell Volume 102.1 fl (78-100); Mean Corpuscular Hemoglobin 32.5 pg (27-31); Mean Corpuscular Hgb Conc 31.8 g/dl (32-36); Mean Platelet Volume 9.3 fl (8-12.5); Platelet Count 348 K/mm3 (150-450); Red Cell Distribution Width 14.6 % (11.5-14.0); White Blood Count 13.2 K/mm3 (4.0-10.5)
[2019-01-08 04:33] LABS: Total Cells Counted 100
[2019-01-08 04:43] LABS: Albumin * 2.1 gm/dl (3.4-5.0); Anion Gap 13.1 mmol/L (6.8-13.8); BUN/Creatinine Ratio 29.5 (9.0-21.6); Bilirubin, Total 0.8 mg/dL (0.0-1.1); Ca. Corrected For Albumin 9.2 mg/dL (8.4-10.2); Carbon Dioxide 23.8 mmol/L (24-32.6); Potassium 3.9 mmol/L (3.4-4.6); Troponin I 0.057 ng/mL (0.00-0.10)
[2019-01-08 04:44] LABS: Atypical (Reactive) Lymph 1 % (0-2); Band 23 % (0-2.0); Immature Granulocyte 6 (0-1); Lymphocyte 1 % (20-51); Macrocytosis Trace; Monocyte 2 % (0-9); Neutrophil 67 % (42-75); Neutrophil # 8.8 K/mm3 (1.3-6.0)
[2019-01-08] MEDS: NORMAL SALINE 1,000 ML IV PRN ×4 (05:10→12:43)
[2019-01-08] MEDS ORDERED: CEFEPIME HCL 1 GM/100 ML BAG IV ONE (05:29)
[2019-01-08] MEDS ORDERED: FUROSEMIDE 10 MG/ML VIAL IV ONE (05:45)
--- NOTE | 2019-01-08 06:00 | PATHPSR ---
PHYSICIAN: Alonso Moody DO / Alfred Hernández DO LAB#: [id number] SPECIMEN DATE: 01/08/2019 CLINICAL INFORMATION: This 83-year-old detention resident woman has been cou ghing, short of breath for 2 to 3 days and they contacted her PCP, Dr. Moody, and he prescribed Cefdinir. This evening the patient got worse, spiked a fever of 103.4 and her O2 saturations were in the 70s. She was transferred by EMS to the ED at [facility]. The patient has an elevated lactic acid to 2.1 mmol /L and an elevated WBC count to 13 2K/mm3 with increased bands up to 23% and immature granulocytes 6%. Peripheral smear review by pathologist is ordered to confirm the high bandemia and left shift. CBC: WBC 13.2 K/mm3, hemoglobin 9.1 gm/dl, hematocrit 28.6 %, MCV is 102.1 fl, MCH is 32.5 pg, MCHC is 31.8 g/dl, Platelet count 348,000/mm. Manual differential: Neutrophils 67 %, bands 23 %, lymphocytes 1 %, monocytes 2 %, atypical reactive lymphocytes 1 %, immature granulocytes 6%. RED BLOOD CELLS: Macrocytosis with mild moderate macrocytic anemia PLATELETS: No abnormalities WHITE BLOOD CELLS: Mild leukocytosis with marked left shift of granulocytic series and 2+ toxic granulation DIAGNOSIS: PERIPHERAL BLOOD SMEAR, REVIEW BY PATHOLOGIST: -MILD LEUKOCYTOSIS WITH MARKED LEFT SHIFT OF THE GRANULOCYTIC SERIES -MILD TO MODERATE MACROCYTIC ANEMIA COMMENT: Findings are consistent with reactive leukocytosis with left shift of granulocytic series consistent with the clinical findings of possible pneumonia. Patient also has macrocytosis and anemia. No recent B12 and folate evaluations from this year are seen on the chart at [facility]. No features of a primary hematopoietic malignancy is identified on our examination. The findings are communicated by voice to Dr. Ng and the results are faxed to the emergency room on 01/08/2019.
[2019-01-08] MEDS ORDERED: LORazepam 2 MG/ML DISP.SYRIN IV ONE (08:20)
[2019-01-08] MEDS ORDERED: LORazepam 2 MG/ML DISP.SYRIN IV SCH (08:30)
[2019-01-08] MEDS ORDERED: BISACODYL 10 MG SUPP.RECT RC PRN (08:30)
[2019-01-08] MEDS ORDERED: SENNOSIDES/DOCUSATE SODIUM 1 TAB TABLET PO PRN (08:30)
[2019-01-08] MEDS ORDERED: POLYETHYLENE GLYCOL 3350 17 GM PACKET PO PRN (08:30)
[2019-01-08] MEDS ORDERED: ACETAMINOPHEN 325 MG TABLET PO PRN (08:30)
[2019-01-08] MEDS ORDERED: traZODone HCL 50 MG TABLET PO PRN (08:30)
[2019-01-08] MEDS ORDERED: OLANZapine 5 MG TABLET PO SCH ×2 (09:00→21:00)
[2019-01-08] MEDS ORDERED: ENOXAPARIN SODIUM 40 MG/0.4 ML SYRG SC SCH (09:00)
[2019-01-08] MEDS ORDERED: MULTIVITAMINS 1 CAP CAPSULE PO SCH (09:00)
[2019-01-08] MEDS: guaiFENesin 100 MG/5 ML SYRUP PO SCH ×3 (09:46→18:17)
[2019-01-08] MEDS: POTASSIUM CHLORIDE 10 MEQ TABLET.SA PO SCH ×2 (09:46→18:16)
[2019-01-08] MEDS: SERTRALINE HCL 50 MG TABLET PO SCH (09:47)
--- NOTE | 2019-01-08 11:27 | HP ---
Chief Complaint - Chief Complaint Date of Service: 01/08/19 Time of Service: 10:30 Chief Complaint: Cough, shortness of breath, fever History of Present Illness: This is an 83-year-old female resident at the [facility] [place]. She was admitted there about a week ago following an ORIF of the left hip to repair a left intertrochanteric hip fracture. She developed some coughing and cough medicine had been ordered. She then developed fever yesterday and last evening I ordered cefdinir as an antibiotic for her. She got worse through the night with a temperature of 104F. She was sent to the emergency room where she is found to be septic, hypoxic, febrile, and chest x- ray revealed bilateral pneumonia infiltrates. She received 1 g of Maxipime in the ER. This morning I placed her on Rocephin and azithromycin. She was also very combative on admission and earlier this morning. I had them give her 1 mg of lorazepam IV and she has been sleeping well since then. She has an oxygen nonrebreather mask on and at 2 L/min. Auscultation of her chest reveals rhonchi and crackles on the right lateral chest and left upper chest. The hip wound is healing well. Her mental baseline is that of advanced Alzheimer's disease. But she is more confused more combative and seemingly little more paranoid than usual. She is trying to pull out her IVs and pull off her hospital down. She does not usually have combative-like behavior. This change in mental status is no doubt some encephalopathy from her sepsis. Medical History (Updated 01/08/19 @ 06:09 by Alfred Hernández DO) Unspecified open-angle glaucoma, stage unspecified (Acute) Major depressive disorder (Acute) Osteoarthritis (Acute) Hyperlipidemia (Chronic) Essential hypertension (Chronic) Glaucoma (Chronic) Dementia (Chronic) Anxiety (Chronic) CAD (coronary artery disease) (Chronic) AAA (abdominal aortic aneurysm) (Chronic) Surgical History: Surgical History (Updated 12/30/18 @ 08:06 by Donald Goldberg DO) History of cholecystectomy (Resolved) History of colonoscopy (Resolved) History of hysterectomy (Resolved) History of permanent cardiac pacemaker placement (Chronic) History of AAA (abdominal aortic aneurysm) repair (Resolved) Family History: Family History (Updated 12/27/18 @ 06:54 by Micah Cordoba RN) Other Family history unobtainable Social History: (Last Reviewed 01/08/19 @ 06:46 by Miriam Katz RN) Social History: senior living: Yes lives independently: No caregiver/support person: Yes caregiver/support person comment: senior living, spouse caregivers: other parent marital status: current occupational status: retired Tobacco: Smoking Status: Former smoker, quit over 20 years ago Review Of Systems (GEN) - Review of Systems Generalized/Overall Review: Present: Weakness, Chills, Fever EENTM: Present: No Symptoms Reported Respiratory: Present: Cough, Shortness of Breath, Wheezing Cardiac: Present: No Symptoms Reported Abdominal: Present: No Symptoms Reported Genitourinary: Present: No Symptoms Reported Musculoskeletal: Present: No Symptoms Reported, Other - 1 week status post left hip ORIF Neurological: Present: Pre-existing Deficit - With poor mental status due to Alzheimer's dementia. Skin: Present: No Symptoms Reported Endocrine: Present: No Symptoms Reported Immunizations: IMMUNIZATION HX Immunizations Up to Date Yes History of Influenza Vaccine Yes Hx Pneumococcal Vaccination Yes Allergies/Adverse Reactions: Allergies Allergy/AdvReac Type Severity Reaction Status Date / Time No Known Allergies Allergy Verified 01/08/19 06:47 Home Medications: HOME MEDICATIONS acetaminophen 325 mg capsule 650 mg PO Q6H PRN cap 05/01/18 [Last Taken 01/08/19 03:18] bisacodyl 10 mg rectal suppository 10 mg [place] DAILY PRN 05/01/18 [Last Taken Unknown] latanoprost 0.005 % eye drops 1 drp OP HS #3 ml 05/01/18 [Last Taken 01/06/19 20:00] lisinopril 5 mg tablet 5 mg PO HS #28 tab 05/01/18 [Last Taken 01/07/19 20:00] olanzapine 10 mg tablet 10 mg PO HS #28 tab 05/01/18 [Last Taken 01/07/19 20:00] olanzapine 2.5 mg tablet 2.5 mg PO DAILY #28 tab 05/01/18 [Last Taken 01/07/19 07:00] polyethylene glycol 3350 17 gram/dose oral powder 17 g PO DAILY PRN g 05/01/18 [Last Taken Unknown] potassium chloride ER 10 mEq tablet,extended release 10 meq PO BID #28 tab 05/01/18 [Last Taken 01/07/19 16:30] sennosides 8.6 mg-docusate sodium 50 mg tablet 1 tab PO HS PRN 05/01/18 [Last Taken 01/05/19 12:22] sertraline 50 mg tablet 50 mg PO DAILY #28 tab 05/01/18 [Last Taken 01/07/19 07:00] simvastatin 20 mg tablet 20 mg PO HS #28 tab 05/01/18 [Last Taken 01/07/19 20:00] trazodone 50 mg tablet 25 mg PO HS PRN #16 tab 05/01/18 [Last Taken 12/30/18 18:55] olanzapine 5 mg tablet 5 mg PO 1400 #28 tab 08/11/18 [Last Taken 01/07/19 1400] Dextromethorphan Polistirex [Delsym] 15 mg PO BID PRN 12/27/18 [Last Taken Unknown] Enoxaparin Sodium [Lovenox] 40 mg SC Q24H #40 disp.syrin 12/30/18 [Last Taken 01/07/19 07:00] Acetaminophen with Codeine [Tylenol with Codeine #4 Tablet] 1 ea PO Q4H PRN 01/08/19 [Last Taken 01/07/19 20:18] Cefdinir 300 mg PO BID 01/08/19 [Last Taken Unknown] Cholecalciferol (Vitamin D3) [Vitamin D] 2,000 unit PO DAILY 01/08/19 [Last Taken 01/07/19 07:00] Multivitamin [One Daily] 1 ea PO DAILY 01/08/19 [Last Taken 01/07/19 07:00] guaiFENesin [Guaifenesin] 300 mg PO QID 01/08/19 [Last Taken 01/07/191999] Exam - Exam Vital Signs: Vital Signs - Last Taken Temp 37.7 C 01/08/19 10:54 Pulse 112 H 01/08/19 06:48 Resp 34 H 01/08/19 06:48 BP 101/46 01/08/19 06:48 Pulse Ox 90 L 01/08/19 06:48 Constitutional: Present: Alert, Oriented x3, Cooperative, Well developed, Well nourished, No distress Eye Exam: bilateral eye: normal inspection, PERRL, EOMI Neck: Present: non-tender, full range of motion, supple, normal inspection, trachea midline Back Exam: Present: normal inspection Breasts: Present: Exam deferred Respiratory: Present: crackles, rhonchi Cardiovascular/Chest: Present: normal peripheral pulses, tachycardia - Due to fever Peripheral Pulses: carotid (R): 2+, carotid (L): 2+, radial (R): 2+, radial (L): 2+ Abdomen: Present: Normal bowel sounds, soft, nontender, nondistended, no rebound tenderness, no hepatospenomegaly, no masses /Rectal: Present: Exam deferred Extremity: Present: normal range of motion, non-tender, normal inspection, no pedal edema, no calf tenderness, normal capillary refill Skin Exam: Present: normal color, warm/dry, no cyanosis Lymphatic: Present: no adenopathy Neurologic: Present: technical support agent II-XII nml as tested, no motor/sensory deficits Appearance: Present: appropriate appearance, appropriate insight, neat Eye contact: Present: uncooperative - Due to her dementia Thoughts: Present: incoherent Diagnostic Studies: Abnormal Lab Results 01/08/19 01/08/19 01/08/19 Range/Units 04:20 04:20 04:50 WBC 13.2 H (4.0-10.5) K/mm3 RBC 2.80 L (4.2-5.4) M/mm3 Hgb 9.1 L (12.5-16.0) gm/dL Hct 28.6 L (37.0-47.0) % MCV 102.1 H (78-100) fl MCH 32.5 H (27-31) pg MCHC 31.8 L (32-36) g/dl RDW 14.6 H (11.5-14.0) % Band Neuts % (Manual) 23 H (0-2.0) % Lymphocytes % (Manual) 1 L (20-51) % Immature Granulocytes 6 H (0-1) Neutrophils # (Manual) 8.8 H (1.3-6.0) K/mm3 Lymphocytes # (Manual) 0.1 L (1.5-3.5) k/mm3 Percent Retic 3.3 H (0.4-1.8) % Immature Retic Fraction 25.5 H (3.0-15.9) % pCO2 (32.0-45.0) mmHg pO2 (83.0-108.0) mmHg HCO3 (21.0-28.0) mmol/L Base Excess (-2.0-3.0) mmol/L ABG pH (7.35-7.45) ABG O2 Sat (Measured) (94.0-98.0) % Plasma Sodium 143 H (130-142) mmol/L Chloride 109 H (97-106) mmol/L Carbon Dioxide 23.8 L (24-32.6) mmol/L BUN 46 H D (3-23) mg/dL Creatinine 1.56 H D (0.4-1.4) mg/dL Est GFR (Non-Af Amer) 34 L D (60-130) mL/min BUN/Creatinine Ratio 29.5 H (9.0-21.6) Random Glucose 171 H (70-110) mg/dL Lactic Acid, Venous 2.1 H (0.4-2.0) mmol/L AST 102 H (0-48) U/L ALT 97 H (19-67) U/L Alkaline Phosphatase 211 H (50-170) U/L B-Natriuretic Peptide 2228 H (5-550) pg/mL Total Protein 6.0 L (6.2-8.2) gm/dL Albumin 2.1 L (3.4-5.0) gm/dl 01/08/19 01/08/19 Range/Units 05:10 07:15 WBC (4.0-10.5) K/mm3 RBC (4.2-5.4) M/mm3 Hgb (12.5-16.0) gm/dL Hct (37.0-47.0) % MCV (78-100) fl MCH (27-31) pg MCHC (32-36) g/dl RDW (11.5-14.0) % Band Neuts % (Manual) (0-2.0) % Lymphocytes % (Manual) (20-51) % Immature Granulocytes (0-1) Neutrophils # (Manual) (1.3-6.0) K/mm3 Lymphocytes # (Manual) (1.5-3.5) k/mm3 Percent Retic (0.4-1.8) % Immature Retic Fraction (3.0-15.9) % pCO2 26.8 L (32.0-45.0) mmHg pO2 48.4 L (83.0-108.0) mmHg HCO3 19.0 L (21.0-28.0) mmol/L Base Excess -3.8 L (-2.0-3.0) mmol/L ABG pH 7.47 H (7.35-7.45) ABG O2 Sat (Measured) 87.4 L (94.0-98.0) % Plasma Sodium (130-142) mmol/L Chloride (97-106) mmol/L Carbon Dioxide (24-32.6) mmol/L BUN (3-23) mg/dL Creatinine (0.4-1.4) mg/dL Est GFR (Non-Af Amer) (60-130) mL/min BUN/Creatinine Ratio (9.0-21.6) Random Glucose (70-110) mg/dL Lactic Acid, Venous 2.4 H* (0.4-2.0) mmol/L AST (0-48) U/L ALT (19-67) U/L Alkaline Phosphatase (50-170) U/L B-Natriuretic Peptide (5-550) pg/mL Total Protein (6.2-8.2) gm/dL Albumin (3.4-5.0) gm/dl Laboratory Results WBC 13.2 K/mm3 (4.0-10.5) H 01/08/19 04:20 RBC 2.80 M/mm3 (4.2-5.4) L 01/08/19 04:20 Hgb 9.1 gm/dL (12.5-16.0) L 01/08/19 04:20 Hct 28.6 % (37.0-47.0) L 01/08/19 04:20 MCV 102.1 fl (78-100) H 01/08/19 04:20 MCH 32.5 pg (27-31) H 01/08/19 04:20 MCHC 31.8 g/dl (32-36) L 01/08/19 04:20 RDW 14.6 % (11.5-14.0) H 01/08/19 04:20 Plt Count 348 K/mm3 (150-450) 01/08/19 04:20 MPV 9.3 fl (8-12.5) 01/08/19 04:20 67 % (42-75) 01/08/19 04:20 Band Neuts % (Manual) 23 % (0-2.0) H 01/08/19 04:20 1 % (20-51) L 01/08/19 04:20 2 % (0-9) 01/08/19 04:20 6 (0-1) H 01/08/19 04:20 8.8 K/mm3 (1.3-6.0) H 01/08/19 04:20 0.1 k/mm3 (1.5-3.5) L 01/08/19 04:20 0.3 k/mm3 (0.0-1.0) 01/08/19 04:20 Atypic/Reactive Lymphs 1 % (0-2) 01/08/19 04:20 2+ 01/08/19 04:20 Trace 01/08/19 04:20 Smear sent to path. 01/08/19 04:20 Absolute Retic 0.0900 01/08/19 04:20 Percent Retic 3.3 % (0.4-1.8) H 01/08/19 04:20 Immature Retic Fraction 25.5 % (3.0-15.9) H 01/08/19 04:20 Retic Hgb Content 30.4 pg (29-35) 01/08/19 04:20 pCO2 26.8 mmHg (32.0-45.0) L 01/08/19 05:10 pO2 48.4 mmHg (83.0-108.0) L 01/08/19 05:10 HCO3 19.0 mmol/L (21.0-28.0) L 01/08/19 05:10 Total CO2 19.8 mmol/L (19.0-24.0) 01/08/19 05:10 Base Excess -3.8 mmol/L (-2.0-3.0) L 01/08/19 05:10 ABG pH 7.47 (7.35-7.45) H 01/08/19 05:10 ABG O2 Sat (Measured) 87.4 % (94.0-98.0) L 01/08/19 05:10 Sodium 142 mmol/L (132-142) 01/08/19 04:20 143 mmol/L (130-142) H 01/08/19 04:20 Potassium 3.9 mmol/L (3.4-4.6) 01/08/19 04:20 Chloride 109 mmol/L (97-106) H 01/08/19 04:20 Carbon Dioxide 23.8 mmol/L (24-32.6) L 01/08/19 04:20 13.1 mmol/L (6.8-13.8) 01/08/19 04:20 BUN 46 mg/dL (3-23) H D 01/08/19 04:20 1.56 mg/dL (0.4-1.4) H D 01/08/19 04:20 Est GFR (Non-Af Amer) 34 mL/min (60-130) L D 01/08/19 04:20 29.5 (9.0-21.6) H 01/08/19 04:20 171 mg/dL (70-110) H 01/08/19 04:20 2.4 mmol/L (0.4-2.0) H* 01/08/19 07:15 Calcium 8.0 mg/dL (7.9-10.9) 01/08/19 04:20 Calcium Adj for Albumin 9.2 mg/dL (8.4-10.2) 01/08/19 04:20 0.8 mg/dL (0.0-1.1) 01/08/19 04:20 AST 102 U/L (0-48) H 01/08/19 04:20 ALT 97 U/L (19-67) H 01/08/19 04:20 211 U/L (50-170) H 01/08/19 04:20 0.057 ng/mL (0.00-0.10) 01/08/19 04:20 B-Natriuretic Peptide 2228 pg/mL (5-550) H 01/08/19 04:20 6.0 gm/dL (6.2-8.2) L 01/08/19 04:20 2.1 gm/dl (3.4-5.0) L 01/08/19 04:20 Assessment/Plan - Narrative Narrative: 1. Began IV antibiotics with Rocephin and azithromycin orally if possible. If not I will switch to IV. 2. Lorazepam 0.5 mg every 8 hours as needed anxiety 3. Respiratory therapy treatments 4. Anticipate she will be here through the weekend. 5. Repeat lactic acid per reflex 6. Morning labs to include CBC and CMP. - Assessment/Plan (1) Sepsis Problem: Acute Qualifiers: Sepsis type: sepsis due to unspecified organism Sepsis acute organ dysf unction status: with acute organ dysfunction Severe sepsis acute organ dysfunction type: encephalopathy Severe sepsis shock status: with septic shock Qualified Code(s): A41.9 - Sepsis, unspecified organism; R65.21 - Severe sepsis with septic shock; G93.40 - Encephalopathy, unspecified (2) Nosocomial pneumonia Problem: Acute (3) Essential hypertension Problem: Chronic (4) Dementia Problem: Chronic Qualifiers: Dementia type: Alzheimer's disease (5) Anxiety Problem: Chronic
[2019-01-08] MEDS: LORazepam 2 MG/ML DISP.SYRIN IV PRN (14:37)
[2019-01-08] MEDS ORDERED: AZITHROMYCIN 500 MG in DEXTROSE 5 % IN WATER 250 ML IV SCH ×2 (18:30)
[2019-01-08] MEDS: ALBUTEROL SULFATE/IPRATROPIUM 3 ML NEBU IH SCH (18:33)
[2019-01-08] MEDS ORDERED: LISINOPRIL 5 MG TABLET PO SCH (21:00)
[2019-01-08] MEDS ORDERED: LATANOPROST 25 DROP BTL OP SCH (21:00)
[2019-01-09] MEDS: ALBUTEROL SULFATE/IPRATROPIUM 3 ML NEBU IH SCH ×3 (00:14→13:03)
[2019-01-09] MEDS ORDERED: FUROSEMIDE 10 MG/ML VIAL ONE (01:05)
[2019-01-09] MEDS ORDERED: FUROSEMIDE 10 MG/ML VIAL IV ONE (01:11)
[2019-01-09] MEDS: ACETAMINOPHEN 650 MG SUPP.RECT RC PRN (01:41)
[2019-01-09] MEDS: LORazepam 2 MG/ML DISP.SYRIN IV PRN ×4 (06:14→18:56)
[2019-01-09 06:19] LABS: Hemoglobin 8.7 gm/dL (12.5-16.0); Mean Cell Volume 101.5 fl (78-100); Mean Corpuscular Hemoglobin 32.7 pg (27-31); Mean Corpuscular Hgb Conc 32.2 g/dl (32-36); Mean Platelet Volume 9.7 fl (8-12.5); Platelet Count 350 K/mm3 (150-450); Red Blood Count 2.66 M/mm3 (4.2-5.4); Red Cell Distribution Width 14.6 % (11.5-14.0); White Blood Count 14.2 K/mm3 (4.0-10.5)
[2019-01-09 06:22] LABS: Total Cells Counted 100
[2019-01-09 06:41] LABS: Band 2 % (0-2.0); Lymphocyte 1 % (20-51); Monocyte 1 % (0-9); Neutrophil 96 % (42-75); Neutrophil # 13.6 K/mm3 (1.3-6.0); Platelet Estimate Normal (NORMAL); RBC Morphology Normal (NORMAL)
[2019-01-09 06:44] LABS: Albumin * 1.8 gm/dl (3.4-5.0); Anion Gap 14.4 mmol/L (6.8-13.8); BUN/Creatinine Ratio 31.9 (9.0-21.6); Bilirubin, Total 0.8 mg/dL (0.0-1.1); Ca. Corrected For Albumin 8.9 mg/dL (8.4-10.2); Calcium * 7.5 mg/dL (7.9-10.9); Carbon Dioxide 24.1 mmol/L (24-32.6); Total Protein 5.8 gm/dL (6.2-8.2)
[2019-01-09 06:52] LABS: Potassium 2.5 mmol/L (3.4-4.6)
[2019-01-09 07:12] VITALS: BP 118/68
[2019-01-09] MEDS ORDERED: LORazepam 2 MG/ML DISP.SYRIN IV ONE (08:28)
[2019-01-09] MEDS ORDERED: POLYVINYL ALCOHOL 150 DROP BTL EACHEYE PRN (08:47)
[2019-01-09] MEDS ORDERED: ONDANSETRON HCL/PF 2 MG/ML VIAL IV PRN (08:47)
[2019-01-09] MEDS ORDERED: SCOPOLAMINE HYDROBROMIDE 1.5 MG PATC TD SCH (09:00)
[2019-01-09] MEDS ORDERED: AZITHROMYCIN 250 MG TABLET PO SCH (09:00)
[2019-01-09] MEDS: MORPHINE SULFATE 4 MG/ML SYRG IV PRN ×13 (09:36→21:19)
[2019-01-09] MEDS: HYDROPHILIC OINTMENT 454 APPL JAR TP SCH ×2 (09:55→20:18)
[2019-01-09] MEDS ORDERED: ENOXAPARIN SODIUM 30 MG/0.3 ML SYRG SC SCH (10:00)
[2019-01-09] MEDS: ATROPINE SULFATE 50 DROP BTL SL PRN ×3 (13:02→20:18)
[2019-01-09] MEDS ORDERED: ALBUTEROL SULFATE/IPRATROPIUM 3 ML NEBU IH PRN (15:14)
--- NOTE | 2019-01-09 16:12 | PN ---
Subjective - Date and Time Seen Date: 01/09/19 Time: 08:15 Subjective Narrative: Patient is on BiPAP and unable to answer questions. She is also a poor historian due to presence of dementia. Objective - Review of Systems Generalized/Overall Review: Reports: Fever Respiratory: Reports: Shortness of Breath. Denies: Cough Abdominal: Denies: Abdominal Pain Neurological: Reports: Anxiety Misc: All systems neg except as marked - Vitals Vitals: Last Vital Signs Temp 37.1 C 01/09/19 07:10 Pulse 97 01/09/19 08:07 Resp 27 H 01/09/19 08:07 BP 118/68 01/09/19 07:10 Pulse Ox 89 L 01/09/19 08:07 - Abnormal Lab Findings Abnormal Lab Findings: Abnormal Lab Results 01/09/19 01/09/19 Range/Units 05:55 05:55 WBC 14.2 H (4.0-10.5) K/mm3 RBC 2.66 L (4.2-5.4) M/mm3 Hgb 8.7 L (12.5-16.0) gm/dL Hct 27.0 L (37.0-47.0) % MCV 101.5 H (78-100) fl MCH 32.7 H (27-31) pg RDW 14.6 H (11.5-14.0) % Neutrophils % (Manual) 96 H (42-75) % Lymphocytes % (Manual) 1 L (20-51) % Neutrophils # (Manual) 13.6 H (1.3-6.0) K/mm3 Lymphocytes # (Manual) 0.1 L (1.5-3.5) k/mm3 Sodium 146 H (132-142) mmol/L Plasma Sodium 146 H (130-142) mmol/L Potassium 2.5 L D (3.4-4.6) mmol/L Chloride 110 H (97-106) mmol/L Anion Gap 14.4 H (6.8-13.8) mmol/L BUN 36 H (3-23) mg/dL Est GFR (Non-Af Amer) 49 L D (60-130) mL/min BUN/Creatinine Ratio 31.9 H (9.0-21.6) Random Glucose 130 H (70-110) mg/dL Calcium 7.5 L (7.9-10.9) mg/dL AST 251 H (0-48) U/L ALT 137 H (19-67) U/L Total Protein 5.8 L (6.2-8.2) gm/dL Albumin 1.8 L (3.4-5.0) gm/dl - Exam Constitutional: Present: Alert, Elderly, Thin and frail ENT Exam: Present: hearing grossly normal Neck: Present: trachea midline. Absent: lymphadenopathy (R), lymphadenopathy (L) Respiratory: Present: respiratory distress, crackles, rhonchi - Throughout all lung kaur, No wheezing Cardiovascular/Chest: Present: regular rate, rhythm, no edema, no murmur Abdomen: Present: Normal bowel sounds, soft, nontender Extremity: Present: no pedal edema Skin Exam: Present: normal color, warm/dry Appearance: Present: impaired remote memory Eye contact: Present: avoids eye contact Cauti Physician Documentation - Urinary Catheter Management Urethral (Bowie) Date of Insertion: 01/09/19 Time of Insertion: 06:12 Assessment/Plan Plan Narrative: 83-year-old female with a past medical history of end-stage dementia presents status post failed outpatient treatment of pneumonia. She was started on ceftriaxone and azithromycin. Her symptoms progressively worsened through her hospitalization. She became severely hypoxic and was placed on Oxymask with 7 L of oxygen. Her symptoms worsened and she eventually required BiPAP. Per her family prior to hospitalization she had stopped eating at the [facility] for the past 4 days. Since she was admitted she has also not been eating. When I saw the patient this morning she was very agitated and uncomfortable on the BiPAP. Her potassium had dropped to 2.5, white count was up trending. Patient had received a dose of Lasix overnight due to chest x-ray showing increased vascular congestion. She had good urine output but continued to be very tachypneic with respirations in the 30s and 40s. After an extensive discussion with the family regarding treatment options such as obtaining an ABG, possibly intubating the patient and ordering further lab work the family decided to place the patient on comfort measures. Due to the patient likely being in end-stage dementia, not understanding why the measures being performed are being done and her worsening agitation I believe this was the best course for the patient. In addition, the above lack of oral intake would also continue to inhibit her ability to recover from the pneumonia. The family has requested [facility] hospice and would like her to return to [facility] on hospice.
[2019-01-09] MEDS ORDERED: MORPHINE SULFATE 2 MG/ML DISP.SYRIN ONE ×2 (20:06→21:17)
[2019-01-09] MEDS: MORPHINE SULFATE 2 MG/ML DISP.SYRIN IV PRN ×2 (22:22→23:11)
[2019-01-10] MEDS: MORPHINE SULFATE 2 MG/ML DISP.SYRIN IV PRN ×17 (00:03→23:18)
[2019-01-10] MEDS: ATROPINE SULFATE 50 DROP BTL SL PRN ×2 (03:14→05:47)
[2019-01-10] MEDS: LORazepam 2 MG/ML DISP.SYRIN IV PRN (10:14)
[2019-01-10] MEDS: HYDROPHILIC OINTMENT 454 APPL JAR TP SCH ×2 (10:15→22:02)
--- NOTE | 2019-01-10 12:39 | PN ---
Subjective - Date and Time Seen Date: 01/10/19 Time: 10:15 Subjective Narrative: She is resting comfortably. She is currently nonverbal. Objective - Review of Systems Generalized/Overall Review: Denies: Fever Respiratory: Reports: Shortness of Breath Abdominal: Denies: Vomiting Misc: All systems neg except as marked - Vitals Vitals: Last Vital Signs Temp 37.1 C 01/09/19 07:10 Pulse 97 01/09/19 08:07 Resp 27 H 01/09/19 08:07 BP 118/68 01/09/19 07:10 Pulse Ox 89 L 01/09/19 08:07 - Exam Constitutional: Present: Somnolent, Elderly, Thin and frail ENT Exam: Present: normal ENT inspection Neck: Absent: lymphadenopathy (R), lymphadenopathy (L) Respiratory: Present: no respiratory distress, no accessory muscle use, rhonchi - Throughout all lung kaur, No wheezing Cardiovascular/Chest: Present: no edema, no murmur, tachycardia Abdomen: Present: Normal bowel sounds, soft, nontender Extremity: Present: non-tender, no pedal edema Skin Exam: Present: normal color, warm/dry Appearance: Present: impaired insight Eye contact: Present: cooperative. Absent: good eye contact Thoughts: Absent: normal thought pattern Cauti Physician Documentation - Urinary Catheter Management Urethral ([place]) Date of Insertion: 01/09/19 Time of Insertion: 06:12 Assessment/Plan Plan Narrative: She is a patient with end-stage dementia and pneumonia who developed respiratory distress and was placed on BiPAP she became very agitated and family decided to place her on comfort measures. She is doing well today. She appears very comfortable, does not appear to be in pain and is not agitated. She is sleeping all the time. She is making urine but has not had a bowel movement. Bowie catheter is in place. [facility] hospice was consulted and will be following the patient when she returns back to [facility] on custodial tomorrow January 11, 2019. The patient's and children are all on the same page regarding the plan of care.
[2019-01-11] MEDS: MORPHINE SULFATE 2 MG/ML DISP.SYRIN IV PRN ×8 (00:14→08:56)
[2019-01-11] MEDS: ATROPINE SULFATE 50 DROP BTL SL PRN ×2 (01:13→07:12)
[2019-01-11] MEDS ORDERED: MORPHINE SULFATE 4 MG/ML SYRG ONE ×2 (04:33→05:40)
[2019-01-11] MEDS: SERTRALINE HCL 50 MG TABLET PO SCH (08:19)
[2019-01-11] MEDS: HYDROPHILIC OINTMENT 454 APPL JAR TP SCH (08:19)
--- NOTE | 2019-01-11 09:27 | DS ---
(1) Sepsis Problem: Acute Qualifiers: Sepsis type: sepsis due to unspecified organism Sepsis acute organ dysfunction status: with acute organ dysfunction Severe sepsis acute organ dysfunction type: encephalopathy Severe sepsis shock status: with septic shock Qualified Code(s): A41.9 - Sepsis, unspecified organism; R65.21 - Severe sepsis with septic shock; G93.40 - Encephalopathy, unspecified (2) Nosocomial pneumonia Problem: Acute (3) Essential hypertension Problem: Chronic (4) Dementia Problem: Chronic Qualifiers: Dementia type: Alzheimer's disease Alzheimer's disease onset: late-onset Dementia behavioral disturbance: with behavioral disturbance Qualified Code(s): G30.1 - Alzheimer's disease with late onset; F02.81 - Dementia in other diseases classified elsewhere with behavioral disturbance (5) Anxiety Problem: Chronic Date of Discharge:: 01/11/19 Procedures Performed: none Results and Findings: Pending Mircobiology Results 01/08/19 04:50 Blood Blood Culture - Preliminary NO GROWTH AFTER 48 HOURS 01/08/19 04:20 Blood Blood Culture - Preliminary NO GROWTH AFTER 48 HOURS Lab Pending Results 01/08/19 04:20: WBC 13.2 H, RBC 2.80 L, Hgb 9.1 L, Hct 28.6 L, MCV 102.1 H, MCH 32.5 H, MCHC 31.8 L, RDW 14.6 H, Plt Count 348, MPV 9.3, Neutrophils % (Manual) 67, Band Neuts % (Manual) 23 H, Lymphocytes % (Manual) 1 L, Monocytes % (Manual) 2, Immature Granulocytes 6 H, Neutrophils # (Manual) 8.8 H, Lymphocytes # (Manual) 0.1 L, Monocytes # (Manual) 0.3, Atypic/Reactive Lymphs 1, Toxic Vacuolation 2+, Macrocytosis Trace, Absolute Retic 0.0900, Percent Retic 3.3 H, Immature Retic Fraction 25.5 H, Retic Hgb Content 30.4 01/08/19 04:20: Sodium 142, Plasma Sodium 143 H, Potassium 3.9, Chloride 109 H, Carbon Dioxide 23.8 L, Anion Gap 13.1, BUN 46 H D, Creatinine 1.56 H D, Est GFR (Non-Af Amer) 34 L D, BUN/Creatinine Ratio 29.5 H, Random Glucose 171 H, Calcium 8.0, Calcium Adj for Albumin 9.2, Total Bilirubin 0.8, AST 102 H, ALT 97 H, Alkaline Phosphatase 211 H, Troponin I 0.057, B-Natriuretic Peptide 2228 H, Total Protein 6.0 L, Albumin 2.1 L 01/08/19 04:20: Peripheral Blood Smear Smear sent to path. 01/08/19 04:50: Lactic Acid, Venous 2.1 H 01/08/19 05:10: pCO2 26.8 L, pO2 48.4 L, HCO3 19.0 L, Total CO2 19.8, Base Excess -3.8 L, ABG pH 7.47 H, ABG O2 Sat (Measured) 87.4 L 01/08/19 07:15: Lactic Acid, Venous 2.4 H* 01/09/19 05:55: WBC 14.2 H, RBC 2.66 L, Hgb 8.7 L, Hct 27.0 L, MCV 101.5 H, MCH 32.7 H, MCHC 32.2, RDW 14.6 H, Plt Count 350, MPV 9.7, Neutrophils % (Manual) 96 H, Band Neuts % (Manual) 2, Lymphocytes % (Manual) 1 L, Monocytes % (Manual) 1, Neutrophils # (Manual) 13.6 H, Lymphocytes # (Manual) 0.1 L, Monocytes # (Manual) 0.1, Platelet Estimate Normal, RBC Morphology Normal 01/09/19 05:55: Sodium 146 H, Plasma Sodium 146 H, Potassium 2.5 L D, Chloride 110 H, Carbon Dioxide 24.1, Anion Gap 14.4 H, BUN 36 H, Creatinine 1.13, Est GFR (Non-Af Amer) 49 L D, BUN/Creatinine Ratio 31.9 H, Random Glucose 130 H, Calcium 7.5 L, Calcium Adj for Albumin 8.9, Total Bilirubin 0.8, AST 251 H, ALT 137 H, Alkaline Phosphatase 164, Total Protein 5.8 L, Albumin 1.8 L Condition: Face to Face Encounter completed per CMS Guidelines: No Referrals: Alonso Moody DO [Primary Care Provider] - Prescriptions (Any new or edited meds): LORazepam [Ativan] 1 mg IV Q2H PRN #10 disp.syrin PRN Reason: Anxiety Bisacodyl [Dulcolax Suppository] 10 mg RC DAILY PRN #10 supp.rect PRN Reason: Constipation Lorazepam 1 mg PO Q3H #20 oral.conc Morphine Sulfate 2 mg IV Q15M PRN #20 disp.syrin PRN Reason: Dyspnea Morphine Sulfate [Morphine Sulfate Conc. Oral Solution] 1 mg PO Q2H #20 syringe Scopolamine [Transderm-Scop] 1.5 mg TD Q72H #1 patch.td72 Acetaminophen [Tylenol Suppository] 650 mg RC Q4H PRN #5 supp PRN Reason: Fever Acetaminophen [Tylenol Suppository] 650 mg RC Q4H PRN #20 supp.rect PRN Reason: Fever Complete Home Medications List: Complete Home Medication List: sennosides 8.6 mg-docusate sodium 50 mg tablet 1 tab PO HS PRN 05/01/18 Acetaminophen [Tylenol Suppository] 650 mg RC Q4H PRN #20 supp.rect 01/11/19 Acetaminophen [Tylenol Suppository] 650 mg RC Q4H PRN #5 supp 01/11/19 Bisacodyl [Dulcolax Suppository] 10 mg RC DAILY PRN #10 supp.rect 01/11/19 LORazepam [Ativan] 1 mg IV Q2H PRN #10 disp.syrin 01/11/19 Lorazepam 1 mg PO Q3H #20 oral.conc 01/11/19 Morphine Sulfate 2 mg IV Q15M PRN #20 disp.syrin 01/11/19 Morphine Sulfate [Morphine Sulfate Conc. Oral Solution] 1 mg PO Q2H #20 syringe 01/11/19 Polyvinyl Alcohol [Artificial Tears] 2 drp EACHEYE PRN PRN btl 01/11/19 Scopolamine [Transderm-Scop] 1.5 mg TD Q72H #1 patch.td72 01/11/19
[2019-01-11] MEDS ORDERED: MORPHINE SULFATE 10 MG/0.5 ML SYRINGE PO SCH (09:30)
[2019-01-11] MEDS: MORPHINE SULFATE 10 MG/0.5 ML SYRINGE PO SCH ×11 (11:05→16:26)
[2019-01-11] MEDS: LORazepam 1 MG TABLET PO SCH ×4 (11:05→15:44)
[2019-01-11] MEDS ORDERED: LORazepam 1 MG TABLET PO PRN (11:06)
[2019-01-11] MEDS: ACETAMINOPHEN 650 MG SUPP.RECT RC PRN (13:55)
--- NOTE | 2019-01-11 17:43 | DS ---
Discharge Summary - Provider Primary Care Provider: Alonso Moody Admitting Clinician: Alonso Moody Attending Physician on Admission: Alonso Moody Consult: Luna Wilcox Pronouncing Clinician: Liseth Vidal - Date and Time Date of : 01/11/19 Time of : 16:50 - Diagnosis/Cause of (1) Nosocomial pneumonia Problems: Acute (2) Sepsis Problems: Acute (3) Sepsis with acute liver failure and septic shock Problems: Acute (4) Sepsis with acute hypoxic respiratory failure Problems: Acute (5) Lactic acidosis Problems: Acute (6) Acute kidney injury Problems: Acute (7) Metabolic encephalopathy Problems: Acute (8) Essential hypertension Problems: Chronic (9) Dementia Problems: Chronic (10) Anxiety Problems: Chronic - Summary Details (narrative): Connie Amador is an 83-year-old female resident at the [facility] and a patient of Mary Ruiz CNP. Ms. Mckeon underwent ORIF for a left intertrochanteric hip fracture about 2 weeks ago and went back to the [facility]. She then developed a cough which was initially just treated with cough medicine but then worsened and she started having fever and a loose sounding cough. She was brought to the hospital where x-ray demonstrated bilateral pneumonia. She was started on IV antibiotics Maxipime in the ER and Rocephin and Zithromax on admission. Respiratory therapy treatments were started as well. She also has end-stage dementia and is in the Alzheimer's unit at the [facility]. Unfortunately Friday her condition worsened. Her hemoglobin dropped to 8.7 g. Her potassium dropped to 2.5. She has been febrile with tachypnea and tachycardia. She did awaken Friday and became very anxious. I given her a milligram of lorazepam IV on Friday and she slept until Friday when she woke up. She was cared for by Dr. Wilcox through the weekend. She called me and apprise me of her condition and we agreed that comfort measures would be appropriate. Family was in agreement. She was placed in comfort care measures in room 141. This morning she is tachypneic,, tachycardiac, febrile, and obtunded. She is on oxygen at 7 L nonrebreather mask. Her color is still pink and there is no mottling. [facility] has seen her. The family is in agreement to discontinue her oxygen. They are well aware that it will hasten her demise. Given that I discontinued the oxygen and within about 40 minutes her oxygen saturation was in the low 50% range. Further declined in mid afternoon and to the upper 30s. Her breast became agonal and at 1650 there was no respirations heartbeat or blood pressure. She had multiple organ failure including liver and kidneys as well as having metabolic encephalopathy all is a byproduct of her sepsis from her pneumonia that was fulminating and overwhelming. She was pronounced at 1650 by Roro Sosa, JUSTINE and Mary Canseco RN. She was kept comfortable with morphine and lorazepam. A large number of her family were in attendance at her . The body is released to the home of the family's choice. Procedures Performed: none - Additional Data Confirmation of as documented by pronouncing clinician: no pulse, no respirations, no heart sounds Family: at bedside Additional persons at bedside: back feeder plywood layup line Practitioner(Attending/PCP) notified: Yes Was code activated: No Autopsy requested: No Bird Keeper notified: No Organ Bank notified: No Advance Directives: No Hospice patient: Yes
== END 2019-01-11 16:50 | disposition expired | DRG 871 ==
LOC: ER 03:59 → MS 05:25
PROVIDERS: ADMIT Family Medicine; ATTEND Family Medicine
DX: K72.00 Acute and subacute hepatic failure without coma; Y95 Nosocomial condition; F02.80 Dementia in other diseases classified elsewhere, unspecified severity, without behavioral disturbance, psychotic disturbance, mood disturbance, and anxiety; R65.21 Severe sepsis with septic shock; N17.9 Acute kidney failure, unspecified; I10 Essential (primary) hypertension; G30.9 Alzheimer's disease, unspecified; J18.9 Pneumonia, unspecified organism; F41.9 Anxiety disorder, unspecified; G93.41 Metabolic encephalopathy; S72.142D Displaced intertrochanteric fracture of left femur, subsequent encounter for closed fracture with routine healing; J96.01 Acute respiratory failure with hypoxia
CPT/HCPCS: 36415; 36600; 71010; 71045; 80053; 82803; 83519; 83605; 83880; 84484; 85007; 85025; 85045; 85060; 87040; 87081; 94640; 94664; 94760; 99285